=== PATIENT | male | born 1955 | race Caucasian/White ===

== ENCOUNTER 2023-09-29 08:17 | Outpatient (OUT) | payer MEDICARE, SELFPAY ==
[2023-09-29 08:53] LABS: Basophils Percent Auto 0.7 % (0.2-2.0); Eosinophils Absolute Auto 0.2 10^3/uL (0.0-0.7); Eosinophils Percent Auto 2.7 % (0.9-7.0); Hematocrit 40.1 % (42.0-54.0); Hemoglobin 13.8 g/dL (14.0-18.0); Immature Granulocytes Abs Auto 0.02 10^3/uL (0.00-0.03); Immature Granulocytes Pct Auto 0.3 % (0.0-0.5); Lymphocytes Absolute Auto 1.7 10^3/uL (1.2-3.8); Lymphocytes Percent Auto 29.2 % (20.5-60.0); Mean Corpuscular HGB Conc 34.4 g/dL (29.9-35.2); Mean Corpuscular Hemoglobin 30.7 pg (25.9-34.0); Mean Corpuscular Volume 89.3 fL (80.0-94.0); Mean Platelet Volume 11.4 fL (9.5-13.5); Monocytes Absolute Auto 0.6 10^3/uL (0.3-0.8); Monocytes Percent Auto 9.7 % (1.7-12.0); Neutrophils Absolute Auto 3.4 10^3/uL (1.4-6.5); Neutrophils Percent Auto 57.4 % (43.0-75.0); Platelet Count 159 10^3/uL (150-450); Red Blood Count 4.49 10^6/uL (4.70-6.10); Red Cell Distribution Width 12.2 % (11.0-15.0)
[2023-09-29 10:04] LABS: Estimated Average Glucose 114 mg/dL; Glycohemoglobin A1C 5.6 % (4.5-6.2)
[2023-09-29 10:11] LABS: Alanine Aminotransferase 27 U/L (16-63); Albumin Globulin Ratio 1.5; Albumin Level 3.9 g/dL (3.4-5.0); Alkaline Phosphatase 93 U/L (46-116); Anion Gap 11.5; Aspartate Amino Transferase 20 U/L (15-37); BUN Creatinine Ratio 21.8; Bilirubin Total 0.9 mg/dL (0.2-1.0); Calcium 8.7 mg/dL (8.5-10.1); Carbon Dioxide 28.7 mmol/L (21.0-32.0); Chloride 106 mmol/L (98-107); Chol HDL Ratio 2.3; Cholesterol 94 mg/dL (<=200); Estimated GFR (African America >60 (>=60); Estimated GFR (Non-African Ame >60 (>=60); Globulin 2.6 g/dL; Glucose 100 mg/dL (74-106); HDL Cholesterol 40 mg/dL (40-60); LDL Cholesterol Calculated 43.6 mg/dL; Potassium 4.2 mmol/L (3.5-5.1); Sodium 142 mmol/L (136-145); Thyroid Stimulating Hormone 2.608 uIU/mL (0.358-3.740); Total Protein 6.5 g/dL (6.4-8.2); Triglycerides 52 mg/dL (<=150); VLDL CHOLESTEROL 10.4 mg/dL
[2023-09-29 10:16] LABS: Free T4 0.71 ng/dL (0.76-1.46)
[2023-09-29 10:20] LABS: Prostate Specific Antigen Dx 0.95 ng/mL (<=4.00)
== END 2023-09-29 08:18 | disposition home or self-care (01) ==
LOC: LAB 08:21
PROVIDERS: PCP Family Medicine; Visit Provider Family Medicine
DX: M43.16 Spondylolisthesis, lumbar region (principal); I10 Essential (primary) hypertension; E78.00 Pure hypercholesterolemia, unspecified; Z12.5 Encounter for screening for malignant neoplasm of prostate; R73.09 Other abnormal glucose
CPT/HCPCS: 36415; 80053; 80061; 83036; 84153; 84439; 84443; 85025

== ENCOUNTER 2023-11-16 14:21 | Outpatient (OUT) | payer MEDICARE, SELFPAY | END 2023-11-16 14:22 | disposition home or self-care (01) | LOC: PST 14:22 | PROVIDERS: PCP Family Medicine; Visit Provider Surgery | DX: Z01.818 Encounter for other preprocedural examination (principal); Z12.11 Encounter for screening for malignant neoplasm of colon ==

== ENCOUNTER 2023-11-24 07:03 | Day surgery (SDC) | payer MEDICARE, SELFPAY ==
--- NOTE | 2023-11-24 | OP_ITS ---
OPERATION DATE: 11/24/2023 PREOPERATIVE DIAGNOSIS: Screening colonoscopy. POSTOPERATIVE DIAGNOSIS: Normal colonoscopy to cecum. PROCEDURE: Colonoscopy to cecum. SURGEON: Nick Mendoza M.D. ANESTHESIA: Monitored anesthesia care. ESTIMATED BLOOD LOSS: Zero. INDICATIONS AND CONSENT: Patient is a 67-year-old male, presents for colorectal screening. Indications, risks, benefits, alternatives of proceeding with colonoscopy were explained extensively to the patient, including the risks of bleeding, colon perforation or anesthetic complications. All of his questions were answered. Informed consent was obtained. PROCEDURE: Patient brought to the operating room, placed in the left lateral decubitus position. Monitored anesthesia care was provided. Rectal exam was performed which showed no masses or blood. The scope was inserted into the anal canal. Under direct visualization was advanced. It was advanced to the cecum where cecal markings were clearly identified. Upon withdrawal of the scope, mucosal surfaces were carefully examined. There were no mass lesions or polyps. No inflammatory changes or ulcerations. No significant diverticulosis. The scope was retroflexed in the anal canal. There was no significant hemorrhoidal disease. There were some prominent rectal veins. The scope was then withdrawn. Patient tolerated procedure well, was sent to recovery room in good condition. Follow up colonoscopy for screening should be in 10 years. CC: Ralph Donohue M.D. [place]
--- OUTSIDE RECORDS SUMMARY | 2023-11-24 07:05 | XMS_ITS | CCD ---
Author Organization [facility] Care Team Providers Care Mechanical Specialist Name Role Phone DAT COCHRAN Admitting Unavailable DAT COCHRAN Attending Unavailable CESILIA DONOHUE Referring Unavailable CESILIA DONOHUE Primary Care Unavailable DANY CANADA A Surgeon Unavailable [place] Procedure Practitioner Unavailab Arnaud Bello Unavailable CHARANJIT ., DR LOMAS Admitting Unavailable HOY ., DR LOMAS Primary Care Unavailable HOY ., DR LOMAS Consulting Unavailable HOY ., DR LOMAS Attending Unavailable SHAHAB, DR MIKE Whitten Consulting Unavailable HOY ., DR LOMAS Admitting Unavailable HOY ., DR LOMAS Primary Care Unavailable HOY ., DR LOMAS Consulting Unavailable HOY ., DR LOMAS Attending Unavailable [place], DR KILO Linton Consulting Unavailable HOY ., DR LOMAS Primary Care Unavailable HOY ., DR LOMAS Consulting Unavailable HOY ., DR LOMAS Attending Unavailable HOY ., DR LOMAS Admitting Unavailable HOY ., DR LOMAS Primary Care Unavailable MARIBEL PEARL Admitting Unavailable MARIBEL PEARL Attending Unavailable Maribel Pearl Unavailable MD Cesilia Donohue Primary Care Provider [phone] SERGEY Pearl Attending Provider Maribel Pearl Attending Unavailable Maribel Pearl Admitting Unavailable Cesilia Donohue Primary Care Unavailable DORIS ESQUIVEL Attending Unavailable Cesilia Donohue Primary Care Physician Everton LOPEZ Attending Unavailable Cesilia Donohue Referring Unavailable Allergies Allergy Classification Reported Allergen(s) Allergy Type Date of Onset Reaction(s) Facility (1 source) No Known Medication Allergies; Translations: [No Known Medication Allergies] Propensity to adverse reactions (disorder) [facility] Medications Current Medications Medication Drug Class(es) Dates Sig (Normalized) Sig (Original) aspirin 325 mg delayed release oral tablet (3 sources) Platelet Aggregation Inhibitor, Nonsteroidal Anti-inflammatory Drug Start: 11-02-2023 take 1 tablet by mouth once daily aspirin 325 mg Oral EC Tab 325 mg = 1 tab(s), Oral, Daily, Refills(s) 0 Start Date: 11/02/23 Status: Ordered take 1 tablet by karie th every twenty-four hours Aspirin 325 MG 1 tablet Orally Once a day Active atorvastatin 80 mg oral tablet (5 sources) HMG-CoA Reductase Inhibitor Start: 10-11-2023 take 1 tablet by mouth once daily Lipitor 80 mg Tab 80 mg = 1 tab(s), Oral, Daily, Refills(s) 0 Start Date: 10/11/23 Status: Ordered Start: 06-24-2023 Atorvastatin A ctive 40 MG PO June 24, 2023 12:00am take 1 tablet by karie th once daily Atorvastatin Calcium 40 MG take 1 tablet by mouth once daily Oral for 30 Days Active lidocaine 0.05 mg/mg medicated patch (1 source) Antiarrhythmic, Amide Local Anesthetic Start: 06-24-2022 Lidocaine 5 % 1 patch remove after 12 hours Externally Once a day for 15 days May, Active metoprolol tartrate 25 mg oral tablet (3 sources) beta-Adrenergic Zhen Start: 10-11-2023 take 1 tablet by mouth twice daily Metoprolol tartrate 25 mg Tab 25 mg = 1 tab(s), Oral, BID, Refills(s) 0 Start Date: 10/11/23 Status: Ordered take 1 tablet by mouth twice rich ly Metoprolol Tartrate 25 MG take 1 tablet by mouth twice a day Oral for 30 Days Active tiZANidine 4 mg oral tablet (2 sources) Central alpha-2 Adrenergic Agonist take 2 tablets by mouth at bedtime tiZANidine HCl 4 MG take 2 tablets by mouth at bedtime Oral for 30 Days Active Problems Active Problems Problem Classification Problem Date Documented Date Episodic/Chronic Cardiac dysrhythmias (7 sources) Paroxysmal atrial fibrillation; Translations: [Atrial fibrillation] Onset: 03-02-2022 Chronic Disorders of lipid metabolism (2 sources) Hyperlipidemia, unspecified; Translations: [Hypercholesterolemia ] Onset: 03-07-2022 10-11-2023 Chronic Essential hypertension (1 source) Hypertensive disorder 10-11-2023 Chronic Hyperplasia of prostate (1 source) Benign prostatic hyperplasia 10-11-2023 Chronic Inflammatory conditions of male genital organs (1 source) Chronic prostatitis; Translations: [CHRONIC PROSTATITIS] Onset: 03-07-2022 Chronic Other acquired deformities (5 sources) Lumbar spondylolisthesis; Translations: [Spondylolisthesis, lumbar region] 06-24-2023 Episodic Other acquired deformities (5 sources) Spondylolisthesis, lumbar region; Translations: [Acquired spondylolisthesis] Onset: 06-29-2022 Episodic Other ear and sense organ disorders (1 source) Sensorineural hearing loss 10-11-2023 Chronic Other nutritional; endocrine; and metabolic disorders (1 source) Overweight 10-11-2023 Episodic Other nutritional; endocrine; and metabolic disorders (1 source) Overweight in adulthood with body mass index of 25 or more but less than 30 11-02-2023 Episodic Other screening for suspected conditions (not mental disorders or infectious disease) (2 sources) Encounter for screening for malignant neoplasm of prostate; Translations: [Screening for malignant neoplasm of colon done] Onset: 03-07-2022 Episodic Spondylosis; intervertebral disc disorders; other back problems (1 source) Intervertebral disc disorders with myelopathy, lumbar region; Translations: [IV DISC D/O W/MYELOPATHY LUMBAR RGN] Onset: 02-23-2022 Chronic Spondylosis; intervertebral disc disorders; other back problems (16 sources) Spinal stenosis of lumbar region; Translations: [Spinal stenosis, lumbar region without neurogenic claudication] Onset: 02-02-2022 Episodic Unclassified (1 source) Patient encounter status 11-02-2023 Past or Other Problems Problem Classification Problem Date Documented Da te Episodic/Chronic Diabetes mellitus without complication (1 source) Other abnormal glucose; Translations: [OTHER ABNORMAL GLUCOSE] Onset: 03-07-2022 Episodic Results Test Name Value Interpretation Reference Range Facility Ambulatory Visit Summaryon 0 11-02-2023 Ambulatory Visit Summary Ambulatory Visit Summary EVERTON DECKER :1955 Visit Date:11/02/2023 Ambulatory Visit Instructions Your Diagnosis Screening for malignant neoplasm of colon Your Care Team Attending Physician - Everton LOPEZ MD Primary Care Physician - Cesilia Donohue MD Referring Physician - Cesilia Donohue MD This Is Your Medications List Contact prescribing physician if questions or concerns aspirin (aspirin 325 mg Oral EC Tab) atorvastatin (Lipitor 80 mg Tab) metoprolol (Metoprolol tartrate 25 mg Tab) Procedures Performed Colonoscopy (04/11/2012), Cardiac catheterization, Colonoscopy, Flexible cystoscopy. Discharge Vitals Heart Rate (Peripheral) 60 Respiratory Rate 16 Blood Pressure 126/74 Height 177.8 cm Height 70 in Weight 90.2 kg Weight 198.44 lb BMI 28.53 Medications What How Much When Instructions Unchanged aspirin (aspirin 325 mg Oral EC Tab) 1 Tablets By Mouth Every day Contact prescribing physician if questions or concerns Unchanged atorvastatin (Lipitor 80 mg Tab) 1 Tablets By Mouth Every day Contact prescribing physician if questions or concerns Unchanged metoprolol (Metoprolol tartrate 25 mg Tab) 1 Tablets By Mouth 2 times a day Contact prescribing physician if questions or concerns Allergies No Known Allergies No Known Medication Allergies Problems Ongoing - Any problem that you are currently receiving treatment for. Atrial fibrillation BMI 28.0-28.9,adult BPH (benign prostatic hyperplasia) Hypercholesterolemia Hypertension Overweight Screening for malignant neoplasm of colon Sensorineural hearing loss Spondylolisthesis of lumbar region Patient Survey You may receive a survey via text or e-mail asking about your office visit. Please share your experience with us by completing your survey. We appreciate your feedback and thank you for choosing us for your care. Normal [facility] Office Visiton 09-21-2023 Follow-up visit [id number] Everton Decker 1955 M Date Provider Department Center 09/21/2023 DORIS GARRISON CARD [facility] Family History Problem Relation Age of Onset Coronary artery disease Father Family Status - Relation Status Age at Father Level of Service:[address] [place] OFFICE/OUTPATIENT ESTABLISHED MOD MDM 30 MIN Reason for Visit and Comments: Coronary Artery Disease [187] Hypertension [975898] Atrial Fibrillation [80] Hyperlipidemia [182] Normal [facility] XR lumbar spine 6V w bending on 06-24-2023 XR lumbar spine 6V w bending [facility] [address] [address] XRay Report Signed Patient: Everton Decker MR#: [id number] : 1955 Acct:[id number] Age/Sex: 67 / M ADM Date: 06/24/23 Loc: XD Room: Type: [facility] Attending Dr: Maribel RINCON Copies to: SERGEY Caraballo Ordering Provider: SERGEY Caraballo Date of Service: 06/24/23 XR/XR lumbar spine 6V w bending: M43.16 6 views Lumbar Spinewith bending HISTORY: Suggesting spondylolisthesis. COMPARISON: 03/24/2022 POSTSURGICAL CHANGES: None BONY ALIGNMENT: Stable HYPERMOBILITY:No hypermobility LISTHESIS:Similar 8 mm L4-5 anterolisthesis. FRACTURE: None DEGENERATIVE CHANGES: Similar moderate lower lumbar degenerative change. SOFT TISSUES: Atherosclerosis. BONY MINERALIZATION:[place] te XR/XR lumbar spine 6V w bending IMPRESSION: No hypermobility. Similar moderate L4-5 anterolisthesis. Similar degeneration. Impression dictated by: Fito Rousseau M.D.06/24/2023 2:37 PM Dictation Location: [place] [address] Transcribed By: [facility] 06/24/23 1437 Dictated By: Fito Rousseau DO 06/24/23 1433 Signed By: 06/24/23 1437 [facility] CBC AUTO DIFFon 03-02-2022 BASO # 0.0 103/ul Normal 0.0-0.[address] [facility] Comment on above: Performed By: #### C BC #### [facility] [address] [place] [address] Dr. Jayden Tolentino Basophils/100 WBC (Bld) 0.3 % Normal 0.2-2.[address] [facility] Comment on above: Performed By: #### C BC #### [facility] [address] [place] [address] [address] Jayden Tolentino EO # 0.1 103/ul Normal 0.0-0.[address] [facility] Comment on above: Performed By: #### C BC #### [facility] [address] [place] [address] [address] Jayden Tolentino Eosinophils/100 WBC (Bld) 1.1 % Normal 0.9-7.[address] [facility] Comment on above: Performed By: #### C BC #### [facility] [address] [place] [address] Dr. Jayden Tolentino Erythrocyte distribution width (RBC) [Ratio] 12.5 % Normal 11.0-15.[address] [facility] Comment on above: Performed By: #### C BC #### [facility] [address] [place] [address] Dr. Jayden Tolentino Hematocrit (Bld) [Volume fraction] 40.6 % Critically low 42.0-54.[address] [facility] Comment on above: Performed By: #### C BC #### [facility] [address] [place] [address] Dr. Jayden Tolentino Hemoglobin (Bld) [Mass/Vol] 14.2 g/dL Normal 14.0-18.[address] [facility] Comment on above: Performed By: #### C BC #### [facility] [address] [place] [address] Dr. Jayden Tolentino IG # 0.02 10e3/ul Normal 0.00-0.[address] [facility] Comment on above: Performed By: #### C BC #### [facility] [address] [place] [address] Dr. Jayden Tolentino IG % 0.3 % Normal 0.0-0.[address] [facility] Comment on above: Performed By: #### C BC #### [facility] [address] [place] [address] Dr. Jayden Tolentino LYMPH # 1.5 103/ul Normal 1.2-3.8 [facility] Comment on above: Performed By: #### C BC #### [facility] [address] [place] [address] Dr. Jayden Tolentino Lymphocytes/100 WBC (Bld) 24.2 % Normal 20.5-60.[address] [facility] Comment on above: Performed By: #### C BC #### [facility] [address] [place] [address] Dr. Jayden Tolentino MANUAL DIFF REQ NO Normal [facility] Comment on above: Performed By: #### C BC #### [facility] [address] [place] [address] Dr. Jayden Tolentino MCH (RBC) [Entitic mass] 31.2 pg Normal 25.9-34.0 [facility] Comment on above: Performed By: #### C BC #### [facility] [address] [place] [address] Dr. Jayden Tolentino MCHC (RBC) [Mass/Vol] 35.0 g/dL Normal 29.9-35.2 [facility] Comment on above: Performed By: #### C BC #### [facility] [address] [place] [address] Dr. Jayden Tolentino MCV (RBC) [Entitic vol] 89.2 fL Normal 80.0-94.[address] [facility] Comment on above: Performed By: #### C BC #### [facility] [address] [place] [address] Dr. Jayden Tolentino MONO # 0.5 103/ul Normal 0.3-0.8 [facility] Comment on above: Performed By: #### C BC #### [facility] [address] [place] [address] Dr. Jayden Tolentino Monocytes/100 WBC (Bld) 7.6 % Normal 1.7-12.[address] [facility] Comment on above: Performed By: #### C BC #### [facility] [address] [place] [address] Dr. Jayden Tolentino NEUT # 4.2 103/ul Normal 1.4-6.5 [facility] Comment on above: Performed By: #### C BC #### [facility] [address] [place] [address] Dr. Jayden Tolentino Neutrophils/100 WBC (Bld) 66.5 % Normal 43.0-75.0 [facility] Comment on above: Performed By: #### C BC #### [facility] [address] [place] [address] Dr. Jayden Tolentino Platelet mean volume (Bld) [Entitic vol] 9.9 fL Normal 9.5-13.5 [facility] Comment on above: Performed By: #### C BC #### [facility] [address] [place] [address] [address] Jayden Tolentino PLT 165 103/ul Normal 150-450 [facility] Comment on above: Performed By: #### C BC #### [facility] [address] [place] [address] [address] Jayden Tolentino RBC 4.55 106/ul Critically low 4.70-6.10 [facility] Comment on above: Performed By: #### C BC #### [facility] [address] [place] [address] [address] Jayden Tolentino WBC 6.3 103/ul Normal 4.0-11.[address] [facility] Comment on above: Performed By: #### C BC #### [facility] [address] [place] [address] [address] Jayden Tolentino FREE THYROXINE INDEX T7on FTI 1.90 Normal 1.30-4.[address] [facility] Comment on above: Performed By: #### T 7, CMP, TSH, LIPID #### [facility] [address] [place] [address] [address] Jayden Tolentino T3U 34.0 % Normal 33.0-40.[address] [facility] Comment on above: Performed By: #### T 7, CMP, TSH, LIPID #### [facility] [address] [place] [address] [address] Jayden Tolentino T4 [Mass/Vol] 5.60 ug/dL Normal 4.50-12.10 [facility] Comment on above: Performed By: #### T 7, CMP, TSH, LIPID #### [facility] [address] [place] [address] [address] Jayden Tolentino GLYCOHEMOGLOBIN A1Con 2021 ADA RECOMMENDATION SEE BELOW Normal [facility] Comment on above: Result Comment: ADA RECOMMENDED LIMIT 4.0 - 6.0 ADA THERAPEUTIC TARGET < 7.0 ACTION SUGGESTED > 7.0 Performed By: #### A 1C #### [facility] [address] [place] [address] [address] Jayden Tolentino Glucose [Mass/Vol] 120 mg/dL Normal [facility] Comment on above: Performed By: #### A 1C #### [facility] [address] [place] [address] [address] Jayden Tolentino HbA1c (Bld) [Mass fraction] 5.8 % Normal 4.5-6.[address] [facility] Comment on above: Performed By: #### A 1C #### [facility] [address] [place] [address] [address] Jayden Tolentino LIPID PROFILEon 03-02-2022 CHOL-HDL RATIO NORM SEE BELOW Normal [facility] Comment on above: Result Comment: 3.3 - 4.4 LOW RISK 4.4 - 7.1 AVERAGE RISK 7.1 - 11.0 MODERATE RISK >11.0 HIGH RISK Performed By: #### T 7, CMP, TSH, LIPID #### [facility] [address] [place] [address] [address] Jayden Tolentino Cholesterol [Mass/Vol] 99 mg/dL Normal <=[address] [facility] Comment on above: Performed By: #### T 7, CMP, TSH, LIPID #### [facility] [address] [place] [address] [address] Jayden Tolentino Cholesterol in HDL [Mass/Vol] 44 mg/dL Normal 40-[address] [facility] Comment on above: Performed By: #### T 7, CMP, TSH, LIPID #### [facility] [address] [place] [address] [address] Jayden Tolentino Cholesterol in LDL [Mass/Vol] 44.2 mg/dL Normal [facility] Comment on above: Performed By: #### T 7, CMP, TSH, LIPID #### [facility] [address] [place] [address] [address] Jayden Tolentino Cholesterol.total/Ch olesterol in HDL [Mass ratio] 2.3 {ratio} Normal [facility] Comment on above: Performed By: #### T 7, CMP, TSH, LIPID #### [facility] [address] [place] [address] [address] Jayden Tolentino HDL NORMAL > or = 60 mg/dl - LO W CARDIOVASCULAR RISK <40 mg/dl - HIGH CARDIOVASCULAR RISK Normal [facility] Comment on above: Performed By: #### T 7, CMP, TSH, LIPID #### [facility] [address] [place] [address] [address] Jayden Tolentino LDL CALC NORMAL SEE BELOW Normal [facility] Comment on above: Result Comment: <100 mg/dl OPTIMAL 100 - 129 mg/dl NEAR OR ABOVE OPTIMAL 130 - 159 mg/dl BORDERLINE HIGH 160 - 189 mg/dl HIGH >190 mg/dl VERY HIGH Performed By: #### T 7, CMP, TSH, LIPID #### [facility] [address] [place] [address] [address] Jayden Tolentino Triglyceride [Mass/Vol] 54 mg/dL Normal <=[address] [facility] Comment on above: Performed By: #### T 7, CMP, TSH, LIPID #### [facility] [address] [place] [address] [address] Jayden Tolentino VLDL CALC 10.8 mg/dL Normal [facility] Comment on above: Performed By: #### T 7, CMP, TSH, LIPID #### [facility] [address] [place] [address] [address] Jayden Tolentino PROF 14(COMP METB)on 022 Albumin [Mass/Vol] 3.8 g/dL Normal 3.4-5.0 [facility] Comment on above: Performed By: #### T 7, CMP, TSH, LIPID #### [facility] [address] [place] [address] [address] Jayden Tolentino Albumin/Globulin [Mass ratio] 1.3 {ratio} Normal [facility] Comment on above: Performed By: #### T 7, CMP, TSH, LIPID #### [facility] [address] [place] [address] [address] Jayden Tolentino ALP [Catalytic activity/Vol] 83 U/L Normal 46-116 [facility] Comment on above: Performed By: #### T 7, CMP, TSH, LIPID #### [facility] [address] [place] [address] [address] Jayden Tolentino ALT [Catalytic activity/Vol] 43 U/L Normal 16-[address] [facility] Comment on above: Performed By: #### T 7, CMP, TSH, LIPID #### [facility] [address] [place] [address] [address] Jayden Tolentino Anion gap [Moles/Vol] 11.1 mmol/L Normal [facility] Comment on above: Performed By: #### T 7, CMP, TSH, LIPID #### [facility] [address] [place] [address] [address] Jayden Tolentino AST [Catalytic activity/Vol] 24 U/L Normal 15-[address] [facility] Comment on above: Performed By: #### T 7, CMP, TSH, LIPID #### [facility] [address] [place] [address] [address] Jayden Tolentino Bilirubin [Mass/Vol] 0.8 mg/dL Normal 0.2-1.[address] [facility] Comment on above: Performed By: #### T 7, CMP, TSH, LIPID #### [facility] [address] [place] [address] [address] Jayden Tolentino Calcium [Mass/Vol] 9.0 mg/dL Normal 8.5-10.1 [facility] Comment on above: Performed By: #### T 7, CMP, TSH, LIPID #### [facility] [address] [place] [address] Dr. Jayden Tolentino Chloride [Moles/Vol] 105 mmol/L Normal 98-107 [facility] Comment on above: Performed By: #### T 7, CMP, TSH, LIPID #### [facility] [address] [place] [address] [address] Jayden Tolentino CO2 [Moles/Vol] 26.5 mmol/L Normal 21.0-32.[address] [facility] Comment on above: Performed By: #### T 7, CMP, TSH, LIPID #### [facility] [address] [place] [address] Dr. Jayden Tolentino Creatinine [Mass/Vol] 0.84 mg/dL Normal 0.70-1.[address] [facility] Comment on above: Performed By: #### T 7, CMP, TSH, LIPID #### [facility] [address] [place] [address] Dr. Jayden Tolentino EGFR-AF [place] >60 Normal >=[address] [facility] Comment on above: Performed By: #### T 7, CMP, TSH, LIPID #### [facility] [address] [place] [address] [address] Jayden Tolentino EGFR-NON AF [place] >60 Normal >=60 [facility] Comment on above: Performed By: #### T 7, CMP, TSH, LIPID #### [facility] [address] [place] [address] [address] Jayden Tolentino Globulin (S) [Mass/Vol] 3.0 g/dL Normal [facility] Comment on above: Performed By: #### T 7, CMP, TSH, LIPID #### [facility] [address] [place] [address] [address] Jayden Tolentino Glucose [Mass/Vol] 99 mg/dL Normal 74-106 [facility] Comment on above: Performed By: #### T 7, CMP, TSH, LIPID #### [facility] [address] [place] [address] Dr. Jayden Tolentino Potassium [Moles/Vol] 4.6 mmol/L Normal 3.5-5.1 [facility] Comment on above: Performed By: #### T 7, CMP, TSH, LIPID #### [facility] [address] [place] [address] Dr. Jayden Tolentino Protein [Mass/Vol] 6.8 g/dL Normal 6.4-8.2 [facility] Comment on above: Performed By: #### T 7, CMP, TSH, LIPID #### [facility] [address] [place] [address] [address] Jayden Tolentino Sodium [Moles/Vol] 138 mmol/L Normal 136-145 [facility] Comment on above: Performed By: #### T 7, CMP, TSH, LIPID #### [facility] [address] [place] [address] Dr. Jayden Tolentino Urea nitrogen [Mass/Vol] 19.0 mg/dL Critically high 7.0-18.0 [facility] Comment on above: Performed By: #### T 7, CMP, TSH, LIPID #### [facility] [address] [place], [place] [address] Dr. Jayden Tolentino Urea nitrogen/Creatinine [Mass ratio] 22.6 mg/mg Normal [facility] Comment on above: Performed By: #### T 7, CMP, TSH, LIPID #### [facility] [address] [place], [place] [address] Dr. Jayden Tolentino TSHon 03-02-2022 TSH 2.208 uIU/mL Normal 0.358-3.740 [facility] Comment on above: Performed By: #### T 7, CMP, TSH, LIPID #### [facility] [address] [place], [place] [address] Dr. Jayden Tolentino MRI LSPINE WO CONon 02-19-20 MRI LSPINE WO CON EXAMINATION: MRI LSPINE WO CON HISTORY: Degeneration of lumbar intervertebral disc ; acute lumbar pain for one month radiating into left leg COMPARISON: XR L-spine 02/02/2022 TECHNIQUE: A variety of imaging planes and parameters were utilized for visualization of suspected pathology. FINDINGS: For the purposes of numbering, sagittal T2 image # 8 extends from the T11 vertebral body superiorly to the S3 level inferiorly. PARASPINAL AREA: Normal with no visible mass. BONES: 6 mm anterior listhesis of L4 on 5 without appreciable pars interarticularis defects. CORD/CAUDA EQUINA: Normal caliber, contour, and signal intensity. DISC LEVELS: 12-L1: No significant disc/facet abnormality, spinal stenosis, or foraminal stenosis. L1-L2: No significant disc/facet abnormality, spinal stenosis, or foraminal stenosis. L2-L3: Early degenerative disc disease is present without focal protrusion or neural impingement. L3-L4: Early degenerative disc disease is present without focal protrusion or neural impingement. L4-L5: Marked central canal and left foramen narrowing. Moderate right foramen narrowing. 6 mm anterior listhesis of L4 on 5 with prominent posterior pseudodisc bulging and moderate disc height reduction. Marked degenerative facet arthropathy and ligamentum flavum thickening bilaterally. L5-S1: Mild-moderate foramen narrowing bilaterally without significant central canal narrowing. Mild diffuse disc bulging without disc height reduction. Mild degenerative facet arthropathy. IMPRESSION: 1. L4-L5 marked central canal and left foramen narrowing secondary to moderate degenerative disc disease, marked degenerative facet arthropathy, and grade 1 anterior listhesis (no pars interarticularis defects). Electronically authenticated by: MIKE GUDINO Date: 2022-02-18 06:29 Normal [facility] XR LSPINE MIN 4 VIEWSon 11-0 XR LSPINE MIN 4 VIEWS EXAMINATION: XR LSPINE MIN 4 VIEWS HISTORY: Lumbar radiculopathy r COMPARISON: No relevant comparison available. FINDINGS: BONES: Normal alignment with no acute fracture or spondylolisthesis. 6 mm anterolisthesis of L4 in relation L5. Mild spondylosis. Moderate to severe facet osteoarthropathy DISC SPACES: Normal. No significant disc height narrowing, subluxation, or endplate abnormality. PARASPINOUS: Negative. No paraspinous abnormality is seen. OTHER: Negative. IMPRESSION: Degenerative changes 6 mm anterolisthesis of L4 Electronically authenticated by: KILO OLSEN Date: 2022-02-02 17:44 Normal [facility] BASIC METABOLIC PANELon 09-27 Calcium [Mass/Vol] 8.7 mg/dL Normal 8.6-10.3 [facility] Comment on above: Order Comment: No: D o not add to previous draw Performed By: #### 5 6101 #### [facility] [address] [place] [address], [facility] Chloride [Moles/Vol] 109 mmol/L High 98-107 [facility] Comment on above: Order Comment: No: D o not add to previous draw Performed By: #### 5 6101 #### [facility] [address] [place] [address], [facility] CO2 [Moles/Vol] 27 mmol/L Normal 21-31 [facility] Comment on above: Order Comment: No: D o not add to previous draw Performed By: #### 5 6101 #### [facility] [address] [place] [address], [facility] Creatinine [Mass/Vol] 0.87 mg/dL Normal 0.70-1.30 [facility] Comment on above: Order Comment: No: D o not add to previous draw Performed By: #### 5 6101 #### [facility] [address] [place] [address], [place] GFR/1.73 sq M predicted among blacks MDRD (S/P/Bld) [Vol rate/Area] mL/min/{1.73_m2} Normal >60 [facility] Comment on above: Order Comment: No: D o not add to previous draw Performed By: #### 5 6101 #### [facility] [address] [place] [address], [place] GFR/1.73 sq M predicted among non-blacks MDRD (S/P/Bld) [Vol rate/Area] mL/min/{1.73_m2} Normal >60 [facility] Comment on above: Order Comment: No: D o not add to previous draw Performed By: #### 5 6101 #### [facility] [address] [place] [address], [place] Glucose [Mass/Vol] 95 mg/dL Normal 70-100 [facility] Comment on above: Order Comment: No: D o not add to previous draw Performed By: #### 5 6101 #### [facility] [address] [place] [address], [place] Potassium [Moles/Vol] 4.3 mmol/L Normal 3.5-5.1 [facility] Comment on above: Order Comment: No: D o not add to previous draw Performed By: #### 5 6101 #### [facility] [address] [place] [address], [place] Sodium [Moles/Vol] 140 mmol/L Normal 136-145 [facility] Comment on above: Order Comment: No: D o not add to previous draw Performed By: #### 5 6101 #### [facility] [address] [place] [address], [place] Urea nitrogen [Mass/Vol] 17 mg/dL Normal 7-25 [facility] Comment on above: Order Comment: No: D o not add to previous draw Performed By: #### 5 6101 #### [facility] [address] [place] [address], [facility] CBC COMPLETE BLOOD COUNTon 0 10-15-2018 Erythrocyte distribution width (RBC) [Ratio] 12.2 % Normal 11.5-15.0 [facility] Comment on above: Order Comment: No: D o not add to previous draw Performed By: #### 5 6101 #### [facility] [address] [place] [address], [facility] Hematocrit (Bld) [Volume fraction] 40.6 % Normal 39.0-50.0 [facility] Comment on above: Order Comment: No: D o not add to previous draw Performed By: #### 5 6101 #### [facility] [address] [place] [address], [facility] Hemoglobin (Bld) [Mass/Vol] 13.7 g/dL Normal 13.0-17.0 [facility] Comment on above: Order Comment: No: D o not add to previous draw Performed By: #### 5 6101 #### [facility] [address] [place] [address], [facility] MCH (RBC) [Entitic mass] 31.1 pg Normal 27.0-33.0 [facility] Comment on above: Order Comment: No: D o not add to previous draw Performed By: #### 5 6101 #### [facility] [address] [place] [address], [facility] MCHC (RBC) [Mass/Vol] 33.7 g/dL Normal 32.0-35.0 [facility] Comment on above: Order Comment: No: D o not add to previous draw Performed By: #### 5 6101 #### [facility] [address] [place] [address], [facility] MCV (RBC) [Entitic vol] 92.1 fL Normal 82.0-98.0 [facility] Comment on above: Order Comment: No: D o not add to previous draw Performed By: #### 5 6101 #### [facility] [address] Nucleated RBC/100 WBC (Bld) [Ratio] 0 % Normal 0-0 [facility] Comment on above: Order Comment: No: D o not add to previous draw Performed By: #### 5 6101 #### [facility] [address] [place] [address], [facility] PLAT CNT 164 10*3/uL Normal 150-400 [facility] Comment on above: Order Comment: No: D o not add to previous draw Performed By: #### 5 6101 #### [facility] [address] [place] [address], [facility] RBC (Bld) [#/Vol] 4.41 10*6/uL Normal 4.20-5.70 [facility] Comment on above: Order Comment: No: D o not add to previous draw Performed By: #### 5 6101 #### [facility] [address] [place] [address], [facility] WBC (Bld) [#/Vol] 6.69 10*3/uL Normal 4.00-10.60 [facility] Comment on above: Order Comment: No: D o not add to previous draw Performed By: #### 5 6101 #### [facility] [address] Cardiovascular Lab Reporton 10-15-2018 Cardiovascular Lab Report [facility] Patient Name: Everton Decker [facility] MR #: [id number] Physician: Dany Canada Department of M.D. Medicine Service Date: 10/14/2018 Division of Birthdate: 1955 Cardiology Room #: [id number] Adult Cardiovascular Services [facility] [place] [address] Cardiovascular Laboratory Report FINAL IMPRESSIONS: 1. 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 2. Plaque disease of the right coronary artery and left circumflex coronary artery. 3. Normal global left ventricular systolic function by noninvasive imaging. RECOMMENDATIONS/PLAN: 1. Aggressive cardiovascular risk factor modification. 2. Optimization of medical management; kzwohxac-yx-qjru intensity statin therapy, aspirin, a beta-zhen are indicated. 3. Further investigations and management for the patient's paroxysmal atrial fibrillation as appropriate. 4. Further recommendations deferred to the inpatient services. PROCEDURES: Bilateral selective coronary angiography, limited from angiography, placement of a 6-Serbian MynxGrip closure device. METHODS: After risks, benefits, and alternatives were explained, written informed consent was obtained. The patient was prepped and draped in usual sterile fashion over the right groin. Using 1% lidocaine solution, local infiltration anesthesia was achieved. Using a modified Seldinger technique and a micropuncture kit, access to the right common femoral artery was obtained. Angiography via the inner cannula of the micropuncture kit was performed. This was exchanged out for a 6-Serbian 11 cm sheath. Bilateral selective coronary angiography was performed. Using JL4 and JR4 catheters. After reviewing the images, it was elected to conclude the procedure. A 6-Serbian MynxGrip closure device was deployed per protocol achieving optimal hemostasis. Overall, the patient tolerated the procedure well. There were no overt complications. He was to be transferred to his hospital room in stable condition. FINDINGS: Hemodynamics: AO 130/75. LEFT VENTRICULOGRAPHY: This was not performed. Ejection fraction is normal by noninvasive imaging. CORONARY ARTERIES: 1. Left main coronary artery. This arises from the left coronary cusp. It bifurcates into the left anterior descending and left circumflex coronary arteries and is free of significant stenosis. 2. Left anterior descending coronary artery. This shows mild plaque proximally. There is a 30% midvessel stenosis and mild plaque distally. A fjzaq-fl-ycigiodo sized second diagonal shows a 40%-50% ostial narrowing. 3. Left circumflex coronary artery. This shows luminal irregularities. 4. Right coronary artery. This is a dominant vessel giving rise to the posterior descending and posterolateral branches. It shows a 20%-30% proximal stenosis and diffuse luminal irregularities distally. Limited femoral angiography shows mild plaque and anatomy suitable for closure device. INDICATIONS: Paroxysmal atrial fibrillation, troponin elevation, abnormal stress test. Electronically Signed by: Dany Canada M.D. 10/17/2018 12:56 P Dany Canada M.D. Date Dict: 10/14/2018/05:35 P/Dany Canada M.D. Date Trans: 10/15/2018 02:13 A/josse [id number] cc: Cesilia Donohue M.D. [address] [facility] [id number] Normal [facility] UFH HEPARIN ASSAYon 10-16-19 19 UNFRACTIONATED HEPARIN <0.10 Critically low 0.30-0.70 [facility] Comment on above: Result Comment: [place] roxaban and Apixaban will interfere with the anti Xa assay used to monitor UFH and LMWH. Results called. Accurately read back by Alyssa Vanegas RN at 0632 Performed By: #### 5 6101 #### [facility] [address] [place] [address], [facility] BASIC METABOLIC PANELon 07- Calcium [Mass/Vol] 8.6 mg/dL Normal 8.6-10.3 [facility] Comment on above: Order Comment: No: D o not add to previous draw Performed By: #### 5 6101 #### [facility] [address] [place] [address], [place] Chloride [Moles/Vol] 106 mmol/L Normal 98-107 [facility] Comment on above: Order Comment: No: D o not add to previous draw Performed By: #### 5 6101 #### [facility] [address] [place] [address], [place] CO2 [Moles/Vol] 27 mmol/L Normal 21-31 [facility] Comment on above: Order Comment: No: D o not add to previous draw Performed By: #### 5 6101 #### [facility] [address] [place] [address], [place] Creatinine [Mass/Vol] 0.82 mg/dL Normal 0.70-1.30 [facility] Comment on above: Order Comment: No: D o not add to previous draw Performed By: #### 5 6101 #### [facility] [address] [place] [address], [place] GFR/1.73 sq M predicted among blacks MDRD (S/P/Bld) [Vol rate/Area] mL/min/{1.73_m2} Normal >60 [facility] Comment on above: Order Comment: No: D o not add to previous draw Performed By: #### 5 6101 #### [facility] [address] [place] [address], [place] GFR/1.73 sq M predicted among non-blacks MDRD (S/P/Bld) [Vol rate/Area] mL/min/{1.73_m2} Normal >60 [facility] Comment on above: Order Comment: No: D o not add to previous draw Performed By: #### 5 6101 #### [facility] [address] [place] [address], [place] Glucose [Mass/Vol] 100 mg/dL Normal 70-100 [facility] Comment on above: Order Comment: No: D o not add to previous draw Performed By: #### 5 6101 #### [facility] [address] [place] [address], [place] Potassium [Moles/Vol] 4.0 mmol/L Normal 3.5-5.1 [facility] Comment on above: Order Comment: No: D o not add to previous draw Performed By: #### 5 6101 #### [facility] [address] [place] [address], [facility] Sodium [Moles/Vol] 139 mmol/L Normal 136-145 [facility] Comment on above: Order Comment: No: D o not add to previous draw Performed By: #### 5 6101 #### [facility] [address] [place] [address], [facility] Urea nitrogen [Mass/Vol] 19 mg/dL Normal 7-25 [facility] Comment on above: Order Comment: No: D o not add to previous draw Performed By: #### 5 6101 #### [facility] [address] [place] [address], [facility] CBC COMPLETE BLOOD COUNTon - Erythrocyte distribution width (RBC) [Ratio] 12.4 % Normal 11.5-15.0 [facility] Comment on above: Order Comment: No: D o not add to previous draw PER CHERYL BURKS, UFH IS NOT DUE UNTIL 6 AM; OK TO DRAW ALL A.M. LABS AT 6AM. Performed By: #### 5 0608 #### [facility] [address] [place] [address], [facility] Hematocrit (Bld) [Volume fraction] 41.1 % Normal 39.0-50.0 [facility] Comment on above: Order Comment: No: D o not add to previous draw PER CHERYL BURKS UFH IS NOT DUE UNTIL 6 AM; OK TO DRAW ALL A.M. LABS AT 6AM. Performed By: #### 5 0608 #### [facility] [address] [place] [address], [facility] Hemoglobin (Bld) [Mass/Vol] 14.4 g/dL Normal 13.0-17.0 [facility] Comment on above: Order Comment: No: D o not add to previous draw PER CHERYL BURKS, UFH IS NOT DUE UNTIL 6 AM; OK TO DRAW ALL A.M. LABS AT 6AM. Performed By: #### 5 0608 #### [facility] [address] MCH (RBC) [Entitic mass] 31.2 pg Normal 27.0-33.0 [facility] Comment on above: Order Comment: No: D o not add to previous draw PER RN VITALIY, UFH IS NOT DUE UNTIL 6 AM; OK TO DRAW ALL A.M. LABS AT 6AM. Performed By: #### 5 0608 #### [facility] [address] MCHC (RBC) [Mass/Vol] 35.0 g/dL Normal 32.0-35.0 [facility] Comment on above: Order Comment: No: D o not add to previous draw PER CHERYL BURKS UFH IS NOT DUE UNTIL 6 AM; OK TO DRAW ALL A.M. LABS AT 6AM. Performed By: #### 5 0608 #### [facility] [address] MCV (RBC) [Entitic vol] 89.2 fL Normal 82.0-98.0 [facility] Comment on above: Order Comment: No: D o not add to previous draw PER CHERYL BURKS UFH IS NOT DUE UNTIL 6 AM; OK TO DRAW ALL A.M. LABS AT 6AM. Performed By: #### 5 0608 #### [facility] [address] Nucleated RBC/100 WBC (Bld) [Ratio] 0 % Normal 0-0 [facility] Comment on above: Order Comment: No: D o not add to previous draw PER CHERYL BURKS, UFH IS NOT DUE UNTIL 6 AM; OK TO DRAW ALL A.M. LABS AT 6AM. Performed By: #### 5 0608 #### [facility] [address] [place] [address], [facility] PLAT CNT 172 10*3/uL Normal 150-400 [facility] Comment on above: Order Comment: No: D o not add to previous draw PER CHERYL BURKS UFH IS NOT DUE UNTIL 6 AM; OK TO DRAW ALL A.M. LABS AT 6AM. Performed By: #### 5 0608 #### [facility] [address] [place] [address], [facility] RBC (Bld) [#/Vol] 4.61 10*6/uL Normal 4.20-5.70 [facility] Comment on above: Order Comment: No: D o not add to previous draw PER CHERYL BURKS [facility] IS NOT DUE UNTIL 6 AM; OK TO DRAW ALL A.M. LABS AT 6AM. Performed By: #### 5 0608 #### [facility] [address] [place] [place] [address], [facility] WBC (Bld) [#/Vol] 6.83 10*3/uL Normal 4.00-10.60 [facility] Comment on above: Order Comment: No: D o not add to previous draw PER CHERYL BURKS [facility] IS NOT DUE UNTIL 6 AM; OK TO DRAW ALL A.M. LABS AT 6AM. Performed By: #### 5 0608 #### [facility] [address] [place] [address], [facility] TROPONIN-Ion 10-14-2018 Troponin I.cardiac [Mass/Vol] 0.12 ng/mL Critically high 0.00-0.04 [facility] Comment on above: Order Comment: No: D o not add to previous draw Result Comment: M-WI EVIOUS CRITICAL RESULT REFERENCE RANGES: 0.00 - 0.04 ng/ml NORMAL 0.05 - 0.50 ng/ml INDETERMINATE > 0.50 ng/ml CONSISTENT WITH AN M.I. Performed By: #### 5 6101 #### [facility] [address] [place] [address], [facility] Troponin I.cardiac [Mass/Vol] 0.16 ng/mL Critically high 0.00-0.04 [facility] Comment on above: Order Comment: No: D o not add to previous draw Result Comment: M-WI EVIOUS CRITICAL RESULT REFERENCE RANGES: 0.00 - 0.04 ng/ml NORMAL 0.05 - 0.50 ng/ml INDETERMINATE > 0.50 ng/ml CONSISTENT WITH AN M.I. Performed By: #### 3 5200 #### [facility] [address] [place] [address], [facility] UFH HEPARIN ASSAYon 10-15-19 19 UNFRACTIONATED HEPARIN 0.36 IU/mL Normal 0.30-0.70 [facility] Comment on above: Result Comment: [place] roxaban and Apixaban will interfere with the anti Xa assay used to monitor UFH and LMWH. Performed By: #### 5 6101 #### [facility] [address] UNFRACTIONATED HEPARIN >1.00 Critically high 0.30-0.70 [facility] Comment on above: Order Comment: No: D o not add to previous draw Result Comment: [place] roxaban and Apixaban will interfere with the anti Xa assay used to monitor UFH and LMWH. Result called to JERRY BELLO rn 0745 Performed By: #### 5 6101 #### [facility] [address] [facility] [facility] [address] BASIC METABOLIC PANELon 09-26 Calcium [Mass/Vol] 9.5 mg/dL Normal 8.6-10.3 [facility] Comment on above: Order Comment: No: D o not add to previous draw Performed By: #### 1 0070, 17292, 50226, 16353, 35011 #### [facility] [address] [place] [address], [facility] Chloride [Moles/Vol] 106 mmol/L Normal 98-107 [facility] Comment on above: Order Comment: No: D o not add to previous draw Performed By: #### 1 0070, 23839, 36659, 02934, 79138 #### [facility] [address] [place] [address], [facility] CO2 [Moles/Vol] 24 mmol/L Normal 21-31 [facility] Comment on above: Order Comment: No: D o not add to previous draw Performed By: #### 1 0070, 55573, 42737, 57767, 38069 #### [facility] [address] [place] [address], [place] Creatinine [Mass/Vol] 0.81 mg/dL Normal 0.70-1.30 [facility] Comment on above: Order Comment: No: D o not add to previous draw Performed By: #### 1 0070, 88678, 98147, 11579, 43763 #### [facility] [address] [place] [address], [place] GFR/1.73 sq M predicted among blacks MDRD (S/P/Bld) [Vol rate/Area] mL/min/{1.73_m2} Normal >60 [facility] Comment on above: Order Comment: No: D o not add to previous draw Performed By: #### 1 0070, 20929, 34697, 11858, 86548 #### [facility] [address] [place] [address], [place] GFR/1.73 sq M predicted among non-blacks MDRD (S/P/Bld) [Vol rate/Area] mL/min/{1.73_m2} Normal >60 [facility] Comment on above: Order Comment: No: D o not add to previous draw Performed By: #### 1 0070, 91122, 51569, 20368, 81038 #### [facility] [address] [place] [address], [place] Glucose [Mass/Vol] 98 mg/dL Normal 70-100 [facility] Comment on above: Order Comment: No: D o not add to previous draw Performed By: #### 1 0070, 01836, 58554, 28862, 03241 #### [facility] [address] [place] [address], [place] Potassium [Moles/Vol] 4.2 mmol/L Normal 3.5-5.1 [facility] Comment on above: Order Comment: No: D o not add to previous draw Performed By: #### 1 0070, 40974, 37520, 94925, 88958 #### [facility] [address] [place] [address], [facility] Sodium [Moles/Vol] 138 mmol/L Normal 136-145 [facility] Comment on above: Order Comment: No: D o not add to previous draw Performed By: #### 1 0070, 03581, 03998, 30255, 51526 #### [facility] [address] Urea nitrogen [Mass/Vol] 20 mg/dL Normal 7-25 [facility] Comment on above: Order Comment: No: D o not add to previous draw Performed By: #### 1 0070, 85080, 29494, 36848, 03985 #### [facility] [address] [place] [address], [facility] CBC W/DIFFon 10-13-2018 ABS BASOPHILS 0.0 10*3/uL Normal 0.0-0.[address] [facility] Comment on above: Order Comment: No: D o not add to previous draw Performed By: #### 5 0103 #### [facility] [address] [facility] [address] ABS IMM GRANS 0.0 10*3/uL Normal 0.0-0.[address] [facility] Comment on above: Order Comment: No: D o not add to previous draw Performed By: #### 5 0103 #### [facility] [address] [place] [address], [facility] ABS NEUTROPHILS 5.1 10*3/uL Normal 1.6-7.6 [facility] Comment on above: Order Comment: No: D o not add to previous draw Performed By: #### 5 0103 #### [facility] [address] [place] [address], [facility] Basophils/100 WBC (Bld) 0.4 % Normal 0.0-1.0 [facility] Comment on above: Order Comment: No: D o not add to previous draw Performed By: #### 5 0103 #### [facility] [address] [place] [address], [facility] Eosinophils (Bld) [#/Vol] 0.1 10*3/uL Normal 0.0-0.5 [facility] Comment on above: Order Comment: No: D o not add to previous draw Performed By: #### 5 0103 #### [facility] [address] [place] [address], [facility] Eosinophils/100 WBC (Bld) 0.8 % Normal 0.0-6.0 [facility] Comment on above: Order Comment: No: D o not add to previous draw Performed By: #### 5 0103 #### [facility] [address] Erythrocyte distribution width (RBC) [Ratio] 12.5 % Normal 11.5-15.0 [facility] Comment on above: Order Comment: No: D o not add to previous draw Performed By: #### 5 0103 #### [facility] [address] [place] [address], [facility] Hematocrit (Bld) [Volume fraction] 44.3 % Normal 39.0-50.0 [facility] Comment on above: Order Comment: No: D o not add to previous draw Performed By: #### 5 0103 #### [facility] [address] [place] [id number], [facility] Hemoglobin (Bld) [Mass/Vol] 15.3 g/dL Normal 13.0-17.0 [facility] Comment on above: Order Comment: No: D o not add to previous draw Performed By: #### 5 0103 #### [facility] [address] [place] [id number], [facility] IMMATURE GRANS 0.3 % Normal 0.0-1.[address] [facility] Comment on above: Order Comment: No: D o not add to previous draw Performed By: #### 5 0103 #### [facility] [address] [place] [id number], [facility] Lymphocytes (Bld) [#/Vol] 2.0 10*3/uL Normal 1.2-4.0 [facility] Comment on above: Order Comment: No: D o not add to previous draw Performed By: #### 5 0103 #### [facility] [address] [place] [address], [facility] Lymphocytes/100 WBC (Bld) 25.4 % Normal 20.0-45.0 [facility] Comment on above: Order Comment: No: D o not add to previous draw Performed By: #### 5 0103 #### [facility] [address] [place] [address], [facility] MCH (RBC) [Entitic mass] 31.4 pg Normal 27.0-33.0 [facility] Comment on above: Order Comment: No: D o not add to previous draw Performed By: #### 5 0103 #### [facility] [address] [place] [address], [facility] MCHC (RBC) [Mass/Vol] 34.5 g/dL Normal 32.0-35.0 [facility] Comment on above: Order Comment: No: D o not add to previous draw Performed By: #### 5 0103 #### [facility] [address] [place] [id number], [facility] MCV (RBC) [Entitic vol] 91.0 fL Normal 82.0-98.0 [facility] Comment on above: Order Comment: No: D o not add to previous draw Performed By: #### 5 0103 #### [facility] [address] [place] [address], [place] Monocytes (Bld) [#/Vol] 0.6 10*3/uL Normal 0.1-1.0 [facility] Comment on above: Order Comment: No: D o not add to previous draw Performed By: #### 5 0103 #### [facility] [address] [place] [address], [place] MONOS 7.9 % Normal 5.0-12.0 [facility] Comment on above: Order Comment: No: D o not add to previous draw Performed By: #### 5 0103 #### [facility] [address] [place] [address], [place] Neutrophils/100 WBC (Bld) 65.2 % Normal 40.0-72.0 [facility] Comment on above: Order Comment: No: D o not add to previous draw Performed By: #### 5 0103 #### [facility] [address] [place] [address], [place] Nucleated RBC/100 WBC (Bld) [Ratio] 0 % Normal 0-0 [facility] Comment on above: Order Comment: No: D o not add to previous draw Performed By: #### 5 0103 #### [facility] [address] [place] [address], [place] PLAT CNT 202 10*3/uL Normal 150-400 [facility] Comment on above: Order Comment: No: D o not add to previous draw Performed By: #### 5 0103 #### [facility] [address] [place] [address], [place] RBC (Bld) [#/Vol] 4.87 10*6/uL Normal 4.20-5.70 [facility] Comment on above: Order Comment: No: D o not add to previous draw Performed By: #### 5 0103 #### [facility] [address] [place] [address], [place] WBC (Bld) [#/Vol] 7.86 10*3/uL Normal 4.00-10.60 [facility] Comment on above: Order Comment: No: D o not add to previous draw Performed By: #### 5 0103 #### [facility] [address] HEMOGLOBIN A1Con 10-13-2018 HbA1c (Bld) [Mass fraction] 5.2 % Normal 4.0-6.0 [facility] Comment on above: Order Comment: No: D o not add to previous draw Performed By: #### 5 6101 #### [facility] [address] [facility] HbA1c (Bld) [Mass fraction] 103 mg/dL Normal 70-126 [facility] Comment on above: Order Comment: No: D o not add to previous draw Performed By: #### 5 6101 #### [facility] [address] History and Physicalon 10-13 History and Physical MR#: [id number] [facility] Pt. Name: Everton Decker Admitted: 10/13/2018 Date of : 1955 Attending Physician: Esvin Layne MD Room #: 3AB [id number] Discharge Date: HISTORY AND PHYSICAL CHIEF COMPLAINT: Chest pain, shortness of breath, palpitations. HISTORY OF PRESENT ILLNESS: 62-year-old male, who was transferred from [facility] for further treatment of atrial fibrillation with RVR and NSTEMI. He states that he was working out in his yard last night, started to experience some discomfort in his chest. He was having a pressure-like sensation and heaviness. He felt like his heart was racing. This lasted for quite some time. He took a shower and tried to rest and sleep. When he woke up in the morning, he still had this sensation of pressure in his chest, was feeling lightheaded and very fatigued. He made an appointment to see his doctor. He had an EKG that was showing atrial fibrillation with RVR. He was then referred to go to [facility] where his troponin was elevated as well. He was given anticoagulation with Lovenox and transferred here. It appears that they tried to rate control with metoprolol and may have achieved lower heart rate, but presently he is sustaining in the 130s to 140s. He is denying any chest pressure, discomfort, or palpitations. He is denying nausea or vomiting. He was having diaphoresis yesterday, but nothing presently. Denies abdominal pain, melena, or rectal bleeding. No coughing or shortness of breath presently. No weakness or numbness. PAST MEDICAL HISTORY: Kidney stones. PAST SURGICAL HISTORY: None. HOME MEDICATIONS: None. ALLERGIES: No known drug allergies. SOCIAL HISTORY: Former smoker. He quit in 1993. Smoked on and off for many years, about 5 cigarettes per day for less than 10 years in total. Has 2 beers monthly. Denies any recreational drug use. FAMILY HISTORY: Parents are both . Mom was diabetic and had hypertension and hyperlipidemia. His dad is alive and had an AR at age of 69. REVIEW OF SYSTEMS: 14-point review of systems obtained, all pertinent positives and negatives have been mentioned in history of present illness. Remainder of systems otherwise negative. PHYSICAL EXAMINATION: GENERAL APPEARANCE: Well-developed, well-nourished, middle-aged male, presently in no acute distress. He is sitting comfortably in his chair. VITAL SIGNS: Temperature 98.8, heart rate 130, respiratory rate 20, blood pressure 89/59, saturating 99% on room air. EYES: Pupils are equal, round, and reactive to light and accommodation. Extraocular muscles are intact. No conjunctival pallor. ENMT: External appearance of ears are unremarkable. Hearing is normal. Mucous membranes are moist. No other abnormalities in oropharynx. NECK: Supple. No cervical adenopathy. No JVD. RESPIRATORY: Lungs are clear to auscultation. Normal respiratory effort. CARDIOVASCULAR: Tachycardic. Irregularly irregular. No murmurs. Peripheral pulses are palpable and symmetric. ABDOMEN: Soft, nontender. Bowel sounds are normal. No guarding or rebound tenderness. EXTREMITIES: No edema in bilateral extremities, no varicosities. SKIN: No rashes or lesions. Skin is warm and dry. PSYCHIATRIC: The patient's recent and remote memory are intact. He is alert and oriented x3. LAB STUDIES: BMP; sodium 130, potassium 138, potassium 4.2, chloride 106, bicarb 24, BUN 20, creatinine 0.81, calcium 9.5, and glucose 98. Magnesium 1.9. Positive 3.4. PT 15.7, INR 1.25. Troponin I 0.17. CBC; WBC 7.86, hemoglobin 15.3, hematocrit 44.3, and platelet count 202. The patient's initial troponin from outside hospital was 0.279. He had proBNP of 1922. His troponin level was trending down. The EKG was reviewed showing atrial fibrillation with RVR on EKG from outside hospital as well as from here. ASSESSMENT AND PLAN: 1. Atrial fibrillation with rapid ventricular response: The patient still sustaining heart rates in the 130s to 140s. His blood pressure is normotensive presently. We will start him on Cardizem drip and provide him with maintenance IV fluids as well. TSH has been ordered. Echocardiogram has been ordered. Cardiology consult has been placed and we will follow up the recommendations tomorrow. He was given Lovenox initially. We will start a heparin drip later tonight. The patient will be kept n.p.o. The patient's mag and potassium will be kept above 2 and 4 respectively. 2. Non-ST elevation myocardial infarction: The patient's troponin level is trending down. He is chest pain-free presently. He will be anticoagulated with heparin. Aspirin and statin will be started. Follow up further Cardiology recommendations.Follo w serial troponin levels and monitor on telemetry. 3. Diet: The patient will be kept n.p.o. for now. 4. Deep venous thrombosis prophylaxis: The patient will be on heparin drip. No additional pharmacological DVT prophylaxis will be required. 5. Advance directives: The patient is full code. Electronically Signed by: Esvin Layne MD 10/14/2018 04:20 A Esvin Layne MD Date Dict: 10/13/2018/08:42 P/Esvin Layne MD Date Trans: 10/13/2018 09:24 P/mmo [id number] Normal [facility] MAGNESIUM BLOODon 10-13-2018 Magnesium [Mass/Vol] 1.9 mg/dL Normal 1.9-2.7 [facility] Comment on above: Order Comment: No: D o not add to previous draw Performed By: #### 1 0070, 07377, 60495, 29338, 68407 #### [facility] [address] PHOSPHORUS BLOODon 9 Phosphate [Mass/Vol] 3.4 mg/dL Normal 2.5-5.0 [facility] Comment on above: Order Comment: No: D o not add to previous draw Performed By: #### 1 0070, 77893, 44343, 51392, 74216 #### [facility] [address] [facility] PROTHROMBIN TIMEon 9 INR Coag (PPP) [Relative time] 1.25 {INR} High 0.91-1.16 [facility] Comment on above: Order Comment: No: D o not add to previous draw Result Comment: ACCC P RECOMMENDED INR FOR WARFARIN THERAPY ------- ------- CONDITION INR PROPHYLAXIS OF VENOUS THROMBOSIS 2-3 (HIGH-RISK SURGERY) TREATMENT OF VENOUS THROMBOSIS 2-3 TREATMENT OF PULMONARY EMBOLISM 2-3 PREVENTION OF SYSTEMIC EMBOLISM: 2-3 ACUTE MYOCARDIAL INFARCTION TISSUE HEART VALVES VALVULAR HEART DISEASE ATRIAL FIBRILLATION RECURRENT SYSTEMIC EMBOLISM MECHANICAL HEART VALVE 2.5-3.5 FROM: ORAL ANTICOAGULANTS. MECHANISM OF ACTION, CLINICAL EFFECTIVENESS, AND OPTIMAL THERAPEUTIC RANGE. CHEST 1995;108:231S-246S. Performed By: #### 5 6101 #### [facility] [address] PT Coag (PPP) [Time] 15.7 s High 12.3-14.8 [facility] Comment on above: Order Comment: No: D o not add to previous draw Result Comment: ALL RESULTS MUST BE INTERPRETED WITH RESPECT TO BLOOD DRAWING ARTIFACT OR DILUTION ERROR OF ANTICOAGULANT AT THE TIME OF SAMPLING. Performed By: #### 5 6101 #### [facility] [address] TROPONIN-Ion 10-13-2018 Troponin I.cardiac [Mass/Vol] 0.17 ng/mL Critically high 0.00-0.04 [facility] Comment on above: Order Comment: No: D o not add to previous draw Result Comment: M-CR ITICAL RESULT(S) REVIEWED, CALLED TO AND READ BACK BY VITALIY ARECHIGA RN AT 20:28 M-TROPONIN INITIAL CRITICAL HIGH; RESPUN AND RETESTED REFERENCE RANGES: 0.00 - 0.04 ng/ml NORMAL 0.05 - 0.50 ng/ml INDETERMINATE > 0.50 ng/ml CONSISTENT WITH AN M.I. Performed By: #### 1 0070, 49476, 43914, 90463, 85260 #### [facility] [address] TSH3 WITH REFLEXon 9 Free T4 [Mass/Vol] 0.67 ng/dL Low 0.71-1.85 [facility] Comment on above: Performed By: #### 1 0070, 13017, 23378, 02197, 52065 #### [facility] [address] [place] [address], [facility] TSH 3RD GENERATION 2.63 uIU/mL Normal 0.34-5.60 [facility] Comment on above: Performed By: #### 1 0070, 49812, 74439, 58960, 25481 #### [facility] [address] Vital Signs Date Time Vital Sign Value Performing Clinician Facility 11-02-2023 15:24-0400 Blood Pressure Location Everton NILL [facility] 11-02-2023 15:24-0400 Diastolic blood pressure 74 mm[Hg] Everton NILL [facility] 11-02-2023 15:24-0400 Heart rate 60 /min Everton NILL [facility] 11-02-2023 15:24-0400 Respiratory rate 16 /min Everton NILL [facility] 11-02-2023 15:24-0400 Systolic blood pressure 126 mm[Hg] Everton NILL [facility] 06-24-2023 09:14-0400 Body height 175.26 cm [facility] 06-24-2023 09:14-0400 Body mass index (BMI) [Ratio] 29.9 kg/m2 [facility] 06-24-2023 09:14-0400 Body weight 92.07 kg [facility] 12-24-2022 09:00-0400 Body height 176.53 cm Maribel Pearl Other [facility] Other 12-24-2022 09:00-0400 Body mass index (BMI) [Ratio] 29.11 kg/m2 Maribel Pearl Other [facility] Other 12-24-2022 09:00-0400 Body weight 90.72 kg Maribel Pearl Other [employer] Other 03-26-2022 09:20-0500 Body height 176.53 cm Arnaud Sutherland Other [employer] Other 03-26-2022 09:20-0500 Body mass index (BMI) [Ratio] 28.38 kg/m2 Arnaud Sutherland Other [employer] Other 03-26-2022 09:20-0500 Body weight 88.45 kg Arnaud Sutherland Other [employer] Other Encounters Encounter Date Encounter Type Care Provider Facility Start: 11-02-2023 End: 11-02-2023 ambulatory Everton R LIGIAL [facility] Start: 11-02-2023 End: 11-02-2023 Patient encounter procedure Everton R NILL [facility] Start: 09-28-2023 ambulatory Everton LOPEZ Facility: [facility] Start: 09-21-2023 End: 09-21-2023 ambulatory [facility] Start: 06-24-2023 End: 06-24-2023 ambulatory Maribel Pearl Facility:[facility] Start: 06-24-2023 End: 06-24-2023 ambulatory MD Cesilia Donohue Work Phone: [facility] Work Phone: Start: 06-24-2023 End: 06-24-2023 Patient encounter procedure [facility] Physician [facility] Work Phone: Start: 12-24-2022 End: 12-24-2022 ambulatory Maribel Pearl Other [employer] Other Start: 12-24-2022 Office outpatient vi sit 15 minutes Maribel Pearl [facility] Neurosurgery Start: 06-26-2022 End: 07-22-[address] CESILIA DONOHUE . Facility:[facility] Start: 03-26-2022 End: 03-26-2022 ambulatory Arnaud Sutherland Other [employer] Other Start: 03-26-2022 Office outpatient ne w 30 minutes Arnaud Sutherland [facility] Neurosurgery Start: 03-02-2022 End: 03-03-[address] CESILIA DONOHUE . Facility:[facility] Start: 02-17-2022 End: 02-18-[address] CESILIA DONOHUE . Facility: Start: 02-02-2022 End: 02-03-[address] CESILIA DONOHUE . Facility: Start: 10-13-2018 End: 10-15-2018 Evaluation and management of inpatient DAT COCHRAN Facility:[facility] Procedures Date Procedure Procedure Detail Performing Clinician Start: 06-24-2023 X-ray of lumbar spin e, six views including bending views MD Cesilia Donohue Work Phone: Start: 03-02-[address] ANANT DONOHUE . Comment on above: Performed By: #### P [facility] #### [facility] [address] [place] [address] Dr. Jayden Tolentino Start: 10-14-2018 FLUOROSCOPY OF MULTI PLE CORONARY ARTERIES USING OTH CONTRAST DANY [place] Start: 04-11-2012 Colonoscopy Everton NI LL Cardiac catheterization Pedro ael NILL Colonoscopy Everton NILL Flexible cystoscopy Everton NILL Plan of Treatment Date Care Activity Detail Author XR Lumbar spine Views [facility] Payers Date Payer Category Payer Self-pay 1958 Medicare [id number] 1955 Unknown [id number] 1955 Unknown [id number] 1955 Unknown [id number] 1955 Unknown [id number] 1955 Unknown [id number] 1955 Unknown [id number] Unknown [id number] Unknown [employer] [id number] Unknown [id number] Social History Date Type Detail Facility Sex Assigned At [facility] Start: 1955 Sex Assigned At Male F [facility] Start: 11-02-2023 Tobacco smoking status Ex-smoker (fi nding) [facility] Tobacco smoking status Never [facility] Functional Status Date Assessment Result Facility 11-02-2023 Functional Status N/A [facility] Clinical Notes 03-26-2022 to 11-02-2023 Note Date & Type Note Facility 11-02-2023 Note General Surgery Offi ce/Clinic Note Chief Complaint consultation for colonoscopy HPI Staff 67 year old male presents on consultation from Dr. Donohue for screening colonoscopy. Denies abdominal or rectal pain. No rectal bleeding or change in bowel habits. Denies nausea or vomiting. No unexplained weight loss. Last colonoscopy completed 03/2012 with incomplete bowel prep. No known family history of colon cancer. History of Present Illness 67 yo male with h/o atrial fibrillation, htn, hypercholesterolemia, referred for colorectal screening; patient denies change in bms or blood in stools, no abd complaints; no abd operations, last colonoscopy 2012, unable to intubate cecal bulb; liquid stool throughout colon; on regular asa daily, no NSAIDs; no tobacco use; no fmhx of GI malignancy or IBD. Review of Systems PHQ Score Initial Depression Screen Score: 0 SCORE ROS - Provider Constitutional: no fever, no sweats, no weight loss. Eyes: yes glasses, no blurred vision, no visual loss. ENMT: no dentures, no hoarseness, no swallowing difficulties, no hearing loss, no ear infection(s), no nose bleeds. Cardiovascular: normal blood pressure, no chest pain, regular heartbeat, no heart murmur. Respiratory: no shortness of breath, no cough, no asthma, no wheezing. Gastrointestinal: no nausea, no vomiting, no diarrhea, no constipation, no blood in stool, no change in bowel habits, no abdominal pain, no hepatitis. Genitourinary: no kidney stones, no urine infection, no dysuria. Musculoskeletal: no pain, no weakness. Skin: no changing moles, no rash, no skin lumps. Neurologic: no seizures, no epilepsy, no headache. Psychiatric: no emotional or psychiatric problem. Heme/Lymph: no bleeding problems, no anemia, no blood clots, no transfusions. Allergy/Immunologic: no swollen lymph nodes/glands, no IV drug abuse. Other: Additional ROS info: Except as noted in the above Review of Systems and in the History of Present Illness, all other systems have been reviewed and are negative or noncontributory. Physical Exam Vitals & Measurements HR: 60(Peripheral) RR: 16 BP: 126/74 HT: 70 in HT: 177.8 cm WT: 90.2 kg WT: 198.44 lb BMI: 28.53 HEENT: normal conjunctiva, sclera clear, no scleral icterus, EOM intact, PERRLA, oral mucosa moist without lesions. Neck: trachea midline, no mass, symmetric, no thyromegaly or nodules, no adenopathy Respiratory: lungs CTA, respirations non labored. Cardiovascular: regular rate and rhythm, no murmur, no pedal edema or varicosities. Gastrointestinal: soft, non distended, no tenderness, no masses, no palpable hernias, diastasis recti no, no hepatosplenomegaly; normal bs Lymphatic: no cervical adenopathy, no supraclavicular adenopathy. Musculoskeletal: normal gait, digits and nails without infection, nodes, cyanosis, clubbing. Skin: no rashes, no lesions, no ulcers, no subcutaneous nodules, induration. Psychiatric/Neuro: oriented to time, place, person, judgement normal, affect appropriate for age, insight intact, no focal deficits. Tests: review of old records completed , Discussed surgical options, risks, and possible complications with patient. Assessment/Plan 1. Screening for malignant neoplasm of colon (Z12.11: Encounter for screening for malignant neoplasm of colon) plan colonoscopy under anesthesia, informed consent obtained. Follow-up No qualifying data available Problem List/Past Medical History Ongoing Atrial fibrillation BMI 28.0-28.9,adult BPH (benign prostatic hyperplasia) Hypercholesterolemia Hypertension Overweight Screening for malignant neoplasm of colon Sensorineural hearing loss Spondylolisthesis of lumbar region Historical No qualifying data Procedure/Surgical History Colonoscopy (04/11/2012), Cardiac catheterization, Colonoscopy, Flexible cystoscopy. Medications aspirin 325 mg Oral EC Tab, 325 mg= 1 tab(s), Oral, Daily Lipitor 80 mg Tab, 80 mg= 1 tab(s), Oral, Daily Metoprolol tartrate 25 mg Tab, 25 mg= 1 tab(s), Oral, BID Allergies No Known Allergies No Known Medication Allergies Social History Alcohol Current, Beer, 1-2 times per month, 11/02/2023 Substance Abuse - Denies Substance Abuse, 11/02/2023 Tobacco Former smoker, quit more than 30 days ago Tobacco Use:. Never Smokeless Tobacco Use:. Cigarettes, 0.5 per day. Started age 19.0 Years. Stopped age 33 Years., 11/02/2023 Family History Primary malignant neoplasm of lung: Brother. [facility] Comment on above: Result Comment: Elec tronically Signed By: JOHN MISTRY, Everton Whitten\.br\Date and Time Signed: 11/02/23 16:00 EDT 09-21-2023 Note Patient here for 1 y ear follow up CAD, PAF, and hyperlipidemia. No labs or imaging since last visit. Says he's due to see PCP for routine labs, but not yet scheduled. Denies chest pain, SOB, palpitations, and syncope. Patient requesting ECG today since he hasn't had one in awhile. Review of Systems Musculoskeletal: Positive for back pain. Neurological: Positive for light-headedness (upon standing up too quickly). All other systems reviewed and are negative. [facility] 09-21-2023 Note Cardiovascular Medic [facility] SUBJECTIVE Chief Complaint Patient presents with Coronary Artery Disease Hypertension Atrial Fibrillation Hyperlipidemia Everton Decker is a 67 y.o. male here for follow-up. HPI PMHx: CAD, HLD, PAF, sinus bradycardia He states he has been felling well since last seen. Denies c/o CP, dyspnea, orthopnea, PND, LE edema, dizziness/LH, palpitations, syncope. His BP is very high in clinic today - manual readings. He is adamant his BP is controlled at home. BP at home running 130s/80s. Patient Active Problem List Diagnosis Coronary artery disease involving [place] coronary artery of [place] heart without angina pectoris Paroxysmal atrial fibrillation (CMS/HCC) Sinus bradycardia Elevated heart rate with elevated blood pressure without diagnosis of hypertension Hyperlipidemia Spondylolisthesis, lumbar region Past Medical History: Diagnosis Date Abnormal ECG Arrhythmia Atrial fibrillation (CMS/HCC) Coronary artery disease Hyperlipidemia Myocardial infarction (CMS/HCC) Family History Problem Relation Name Age of Onset Coronary artery disease Father Social History Tobacco Use Smoking status: Former Types: Cigarettes Smokeless tobacco: Never Substance Use Topics Alcohol use: Yes Comment: occasional No Known Allergies ROS Musculoskeletal: Positive for back pain. Neurological: Positive for light-headedness (upon standing up too quickly). All other systems reviewed and are negative. OBJECTIVE Visit Vitals BP (!) 174/92 Pulse 51 Ht 1.765 m (5' 9.5 ) Wt 91.2 kg (201 lb) SpO2 97% BMI 29.26 kg/m??? Smoking Status Former BSA 2.11 m??? Medications: Current Outpatient Medications: aspirin 325 mg tablet, in the morning., Disp: , Rfl: atorvastatin (Lipitor) 40 mg tablet, TAKE 1 TABLET BY MOUTH AT BEDTIME, Disp: 90 tablet, Rfl: 3 metoprolol tartrate (Lopressor) 25 mg tablet, Take 1 tablet by mouth in the morning and at bedtime., Disp: , Rfl: Physical Exam Constitutional: Appearance: Normal appearance. He is normal weight. HENT: Head: Normocephalic and atraumatic. Right Ear: External ear normal. Left Ear: External ear normal. Eyes: Extraocular Movements: Extraocular movements intact. Pupils: Pupils are equal, round, and reactive to light. Neck: Vascular: No carotid bruit. Cardiovascular: Rate and Rhythm: Normal rate and regular rhythm. Pulses: Normal pulses. Heart sounds: Normal heart sounds. Pulmonary: Effort: Pulmonary effort is normal. Breath sounds: Normal breath sounds. Abdominal: General: Bowel sounds are normal. Palpations: Abdomen is soft. Musculoskeletal: General: Normal range of motion. Cervical back: Neck supple. Right lower leg: No edema. Left lower leg: No edema. Skin: General: Skin is warm and dry. Neurological: General: No focal deficit present. Mental Status: He is alert and oriented to person, place, and time. Psychiatric: Mood and Affect: Mood normal. Behavior: Behavior normal. Thought Content: Thought content normal. Judgment: Judgment normal. Labs: Legacy Encounter on 10/15/2018 Component Date Value Ref Range Status Ventricular Rate 10/15/2018 65 BPM Final Atrial Rate 10/15/2018 65 BPM Final WI Interval 10/15/2018 164 ms Final QRS DURATION 10/15/2018 84 ms Final QT Interval 10/15/2018 384 ms Final QTC CALCULATION(BEZET) 10/15/2018 399 ms Final P Britton 10/15/2018 39 degrees Final R-Britton 10/15/2018 22 degrees Final T Wave Britton 10/15/2018 27 degrees Final Diagnosis 10/15/2018 Final Value:Normal sinus rhythm Normal ECG When compared with ECG of 13-OCT-2018 18:54, (unconfirmed) Sinus rhythm has replaced Atrial fibrillation Vent. rate has decreased BY 64 BPM Nonspecific T wave abnormality no longer evident in Lateral Confirmed by Corie Tobar ([id number]) on 10/15/2018 12:31:39 PM No results found for: EXTCMP , BMPR1A , CBCDIF , BNP , LASAP , RED 03/02/22 CBC normal Renal function and liver function normal Chol 99, trig 54. HDL 44, LDL 44.2 A1C 5.8 normal TSH normal Testing/Procedures: 10/14/18 Echo EKG IMPRESSION: Normal sinus rhythm Nonspecific T wave abnormality Abnormal ECG When compared with ECG of 13-AUG-2022 15:43, No significant change was found Confirmed by Kp DEUTSCH, L.S. ([id number]) on 08/14/2022 10:29:44 10/14/18 Cardiac cath Stress test 10/14/2018: Regular perfusion study shows no evidence of ischemia. Normal myocardial perfusion study. Normal global left ventricular systolic function. No ischemic EKG changes seen. LVEF was 71%. EKG 10/24/2018: Marked sinus bradycardia heart rate 48 bpm, Early repolarization ASSESSMENT/PLAN: Diagnoses and all orders for this visit: Coronary artery disease involving [place] coronary artery of sk[place] heart without angina pectoris PAF (paroxysmal atrial fibrillation) (CMS/HCC) - ECG 12 lead Sinus bradycardia Mixed hyperlipidemia Elevated h (more content not included)... [facility] 12-24-2022 Evaluation note Encounter Date Diagnosis Assessment Notes Nov, Spinal stenosis of lumbar region, unspecified whether neurogenic claudication present (ICD-10 - M48.061) MRI reviewed. Patient would likely benefit from pain management with an L4- 5 transforaminal injections. Will refer to Dr. Diaz in [place], pain management. Continue with conservative therapy. Pharmacological management will continue with current medications as prescribed continue with the lidocaine patches and the muscle relaxer as needed. Discussion of use of OTC tumeric. Will follow-up in 6 months. Nov, Spondylolisthes is, lumbar region (ICD-10 - M43.16) [facility] Other 12-29-2022 Evaluation note* Encounter Date Diagnosis Assessment Notes Treatment Notes Treatment Clinical Notes Feb, Lumbar stenosis without neurogenic claudication (ICD-10 - M48.061) I independently reviewed the plain x-ray of the lumbar spine and the MRI of the lumbar spine. This patient has a spondylolisthesis at L4-5 with moderate to severe stenosis. He has very very minimal neurogenic claudication. A simple Kenalog type injection in the buttock region gave him great relief of symptoms for a long period of time. He has no true neurogenic claudication. At this point I just do not think surgical intervention is needed but he may develope more symptoms shortly. After a long discussion we agreed that he would follow-up in 3 months for reevaluation to make sure he is not progressing. Feb, Spondylolisthesis, lumbar region (ICD-10 - M43.16) [facility] Other evaluation + Plan note No data available for this section [facility] [place] Evaluation note* Author Maribel [facility] Authored June 24, 2023 9:4 4am Michael Kumar, a 67year old p atient with a chief complaint of pain radiating down the left leg. The pain originates in the left gluteal region and extends to the lower calf. This condition has persisted for a minimum of two months, and the patient cannot identify a specific causative event. The intensity of the pain varies, with some days being described as severe, cant walk. Michael has encountered challenges in achieving pain relief, despite the use of patches, ice, and heat treatments. The patient has previously undergone two courses of steroid therapy, which failed to provide any relief. Currently, Michael takes Flexeril at bedtime to aid in sleep and relies on Ibuprofen 800 for minor pain relief earlier in the day. Clinical examination reveals a positive straight leg raise test on the left and a slight hyper-reflexivity on the same side. 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 Michael is receptive to non-surgical interventions for pain management, including injections and physical therapy. He has previously undergone a distal clavicle resection and is acquainted with the use of diagnostic injections. The patient expresses a strong desire to find pain relief and is inclined to consider less invasive treatment options prior to entertaining the possibility of surgery. [facility] Work Phone: Evaluation note* Diagnosis Onset Date Resolution Status Spondylolisthesis, lumbar region acute [facility] Work Phone: History general Narrative - Reported* Type Description Date Medical History Arthritis Medical History kidney stones Medical History high cholesterol Surgical History colonoscopy Hospitalization History see surgical hx [facility] Other Hospital Discharge instructions No data available for this section [email or web address] Progress note No data available for this section [facility] [place] Summary Purpose Family History No Family History Records FoundNo Family History Records FoundNo Family History Records FoundNo Family History Records Found No data available for this section No Family History Records Found Advance Directives No Advanced Directives Records Found Advance Directive Response Recorded Date/ Time Advance Directives No February 10:23am Hospital Course Note MR#: [id number] [facility] Pt. Name: Everton Decker Admitted: 10/13/2018 Discharged: 10/15/2018 Date of : 1955 Physician: Dat Cochran MD DISCHARGE SUMMARY PRIMARY CARE PHYSICIAN: Cesilia Donohue M.D. PRINCIPAL DIAGNOSIS: Paroxysmal atrial fibrillation. SECONDARY DIAGNOSES: 1. Coronary artery disease, status post cardiac cath showing nonobstructive disease. 2. Paroxysmal atrial [id number] of 0, now requiring long-term anticoagulation. 3. Dix-VD-ccydmnzll myocardial infarction-type 2. 4. Nephrolithiasis. PROCEDURES THIS ADMISSION: Transthoracic echocardiogram, stress test, cardiac cath. CONSULTATIONS THIS ADMISSION: Cardiology. HOSPITAL COURSE: The patient is a 62-year-old male with past medical history as listed above, who was transferred to our hospital from [facility] for treatment of atrial fibrillation with RVR and NSTEMI. He reports that he was working on his yard prior to presentation and started to have some chest (more content not included)... Reason for Referral Reason EVALUATE AND TREAT Diagnosis 1 Spondylolisthesis, l umbar region (M43.16) Referral Organization [facility] urosurgery Referring Provider First Name Maribel Referring Provider Last Name Ryanne Referring Provider Specialty Nurse Pract dash Referred Organization [facility] Referred Provider Steffany Jacobs Referred Address [address], [place],[address] Referred Provider Specialty Pain Medicin e Referral Priority Routine Chief Complaint and Reason for Visit Chief Complaint 6 month follow up Reason for Visit Spondylolisthesis, l umbar region Chief Complaint 6 month follow up M43.16 Reason for Visit Spondylolisthesis, l umbar region Additional Source Comments (unrecognized sect ion and content) No Status Records FoundNo Status Records FoundNo Status Records FoundNo Status Records FoundNo Status Records Found INFORMATION SOURCE (unrecogn ized section and content) DATE CREATED AUTHOR 11/26/2018 [facility] DATE CREATED AUTHOR AUTHOR'S ORGANIZ ATION 07/29/2022 [facility] DATE CREATED AUTHOR AUTHOR'S ORGANIZ ATION 06/25/2023 [facility] DATE CREATED AUTHOR AUTHOR'S ORGANIZ ATION 09/22/2023 [facility] DATE CREATED AUTHOR AUTHOR'S ORGANIZ ATION 11/05/2023 [facility] REASON FOR VISIT (unrecogniz ed section and content) referred by Dr. Charanjit harrison, Lumbar6 month Follow up Care Teams (unrecognized sec tion and content) Team Status: Active Member Role Status Dates Cesilia Donohue MD Primary Care Provider Active Team Status: Inactive Member Role Status Dates Cesilia Donohue MD Primary Care Provider Active Start: June 24, 2023 End: June 24, 2023 SERGEY [place] Attending Provider Active Start: June 24, 2023 End: June 24, 2023 Goals (unrecognized section and content) Goals may be documented in a n alternate section FOR RECORDS PERTAINING TO PATIENTS WHO ARE OR HAVE BEEN ENROLLED IN A CHEMICAL DEPENDENCY/SUBSTANCEABUSE PROGRAM, SOME INFORMATION MAY BE OMITTED. This clinical summary was aggregated from multiple sources. Caution should be exercised in using it in the provision of clinical care. This summary normalizes information from multiple sources, and as a consequence, information in this document may materially change the coding, format and clinical context of patient data. In addition, data may be omitted in some cases. CLINICAL DECISIONS SHOULD BE BASED ON THE PRIMARY CLINICAL RECORDS. [facility] [employer] provides no warranty or guarantee of the accuracy or completeness of information in this document.
[2023-11-24 07:15] VITALS: BP 126/71; PULSE 62; TEMP 35.8; O2SAT 96; BMI 29.2
[2023-11-24] MEDS: LACTATED RINGER'S SOLUTION 1,000 ML 50 ML IV (07:37)
[2023-11-24 09:23] VITALS: BP 107/87; PULSE 68; TEMP 36.3; O2SAT 96
[2023-11-24 09:38] VITALS: BP 98/82; PULSE 61; O2SAT 97
[2023-11-24 09:53] VITALS: BP 112/74; PULSE 58; O2SAT 99
== END 2023-11-24 09:53 | disposition home or self-care (01) ==
PROVIDERS: PCP Family Medicine; Visit Provider Surgery
PROC: (CPT G0121; principal; 2023-11-24 08:20)
DX: Z12.11 Encounter for screening for malignant neoplasm of colon (principal); I48.91 Unspecified atrial fibrillation; I10 Essential (primary) hypertension; E78.00 Pure hypercholesterolemia, unspecified; Z87.891 Personal history of nicotine dependence; H90.5 Unspecified sensorineural hearing loss
CPT/HCPCS: G0121; J2704

== ENCOUNTER 2024-04-10 11:00 | Outpatient (OUT) | payer MEDICARE, SELFPAY ==
--- NOTE | 2024-04-10 11:17 | XR_ITS ---
The [address] [address] Patient Name: EVERTON DECKER MRN: [id number] date: 1955 Sex: M Assigned Patient Location: [facility] Current Patient Location: [facility] Accession/Order Number: [id number] Exam Date: 04/10/2024 11:25 Report Date: 04/10/2024 13:49 At the request of: CESILIA RAMEY Procedure: XR shoulder RT min 2V PROCEDURE: XR shoulder RT min 2V COMPARISON: None. HISTORY: Right Shoulder Pain FINDINGS: BONES:No fracture, acute abnormality, or significant arthropathy. Minimal osteoarthropathy of the acromioclavicular joint SOFT TISSUES:Negative. No visible soft tissue swelling. EFFUSION:None visible. OTHER: Negative. XR/XR shoulder RT min 2V IMPRESSION: No acute abnormality Electronically authenticated by: KILO OLSEN Date: 04/10/2024 13:49
--- OUTSIDE RECORDS SUMMARY | 2024-04-10 11:17 | XMS_ITS | CCD ---
Author Organization [facility] Care Team Providers Care Scratch Finisher Name Role Phone DAT COCHRAN Admitting Unavailable DAT COCHRAN Attending Unavailable CESILIA DONOHUE Referring Unavailable CESILIA DONOHUE Primary Care Unavailable DANY CANADA A Surgeon Unavailable NE Procedure Practitioner Unavailab Arnaud Bello Unavailable KAROLINE ., DR LOMAS Admitting Unavailable HOY ., DR LOMAS Primary Care Unavailable HOY ., DR LOMAS Consulting Unavailable HOY ., DR LOMAS Attending Unavailable SHAHAB, DR MIKE Whitten Consulting Unavailable HOY ., DR LOMAS Admitting Unavailable HOY ., DR LOMAS Primary Care Unavailable HOY ., DR LOMAS Consulting Unavailable HOY ., DR LOMAS Attending Unavailable CHATSWORTH, DR KILO Linton Consulting Unavailable HOY ., DR LOMAS Primary Care Unavailable HOY ., DR LOMAS Consulting Unavailable HOY ., DR LOMAS Attending Unavailable HOY ., DR LOMAS Admitting Unavailable HOY ., DR LOMAS Primary Care Unavailable MARIBEL PEARL Admitting Unavailable MARIBEL PEARL Attending Unavailable Maribel Pearl Unavailable MD Cesilia Donohue Primary Care Provider [phone] SERGEY Pearl Attending Provider Maribel Pearl Attending Unavailable Maribel Pearl Admitting Unavailable Cesilia Donohue Primary Care Unavailable DORIS ESQUIVEL Attending Unavailable Cesilia Donohue Primary Care Physician Cesilia Donohue Referring Unavailable Everton LOPEZ Attending Unavailable Everton LOPEZ Attending Unavailable Allergies Allergy Classification Reported Allergen(s) Allergy Type Date of Onset Reaction(s) Facility (1 source) No Known Medication Allergies; Translations: [No Known Medication Allergies] Propensity to adverse reactions (disorder) [place] Repository Medications Current Medications Medication Drug Class(es) [...] Test Name Value Interpretation Reference Range Facility Reminderson 11-25-2023 Reminders Reminders From: Precious Perez LPN To: G[facility] - Clinical; Sent: 11/25/2023 11:02:51 EDT Show up: 10/23/2033 07:00:00 EDT Subject: colonoscopy recall Due Date/Time: 11/23/2033 07:00:00 EDT Reminder/Recall Patient due for screening colonoscopy 11/23/2033. Normal [place] Ambulatory Visit Summaryon 0 11-02-2023 Ambulatory Visit [...] for choosing us for your care. Normal [place] Office Visiton 09-21-2023 Follow-up visit [id number] Everton Decker 1955 M Date Provider Department Center 09/21/2023 Janice-DORIS ESQUIVEL [facility] Family History Problem Relation Age of Onset Coronary artery disease Father Family Status - Relation Status Age at Father Level of Service:15945 NE OFFICE/OUTPATIENT ESTABLISHED MOD MDM 30 MIN Reason for Visit and Comments: Coronary Artery Disease [187] Hypertension [801186] Atrial Fibrillation [80] Hyperlipidemia [182] Normal [facility] XR lumbar spine 6V w bending on 06-24-2023 XR lumbar spine 6V w bending [facility] [place] [address] XRay Report Signed Patient: Everton Decker MR#: [id number] : 1955 Acct:[id number] Age/Sex: 67 / M ADM Date: 06/24/23 Loc: XD Room: Type: [facility] Attending Dr: Maribel ESPOSITOC Copies to: SERGEY Caraballo Ordering Provider: SERGEY [...] Fito Rousseau M.D.06/24/2023 2:37 PM Dictation Location: [place] [address] Transcribed By: [facility] 06/24/23 1437 Dictated By: Fito Rousseau DO 06/24/23 1433 Signed By: 06/24/23 1437 Normal [facility] CBC AUTO DIFFon 03-02-2022 BASO # 0.0 103/ul Normal 0.0-0.1 [facility] Comment on above: Performed By: #### C BC #### [facility] [address] [address] [address] Jayden Tolentino Basophils/100 WBC (Bld) 0.3 % Normal 0.2-2.0 [facility] Comment on above: Performed By: #### C BC #### [facility] [address] [place] [address] Dr. Jayden Tolentino EO # 0.1 103/ul Normal 0.0-0.7 [facility] Comment on above: Performed By: #### C BC #### [facility] [address] [place] [address] Dr. Jayden Tolentino Eosinophils/100 WBC (Bld) 1.1 % Normal 0.9-7.0 [facility] Comment on above: Performed By: #### C BC #### [facility] [address] [place] [address] Dr. Jayden Tolentino Erythrocyte distribution width (RBC) [Ratio] 12.5 % Normal 11.0-15.0 [facility] Comment on above: Performed By: #### C BC #### [facility] [address] [place] [address] Dr. Jayden Tolentino Hematocrit (Bld) [Volume fraction] 40.6 % Critically low 42.0-54.0 [facility] Comment on above: Performed By: #### C BC #### [facility] [address] [place] [address] Dr. Jayden Tolentino Hemoglobin (Bld) [Mass/Vol] 14.2 g/dL Normal 14.0-18.0 [facility] Comment on above: Performed By: #### C BC #### [facility] [address] [place] [address] Dr. Jayden Tolentino IG # 0.02 10e3/ul Normal 0.00-0.03 [facility] Comment on above: Performed By: #### C BC #### [facility] [address] [place] [address] Dr. Jayden Tolentino IG % 0.3 % Normal 0.0-0.5 [facility] Comment on above: Performed By: #### C BC #### [facility] [address] [place] [address] Dr. Jayden Tolentino LYMPH # 1.5 103/ul Normal 1.2-3.8 [facility] Comment on above: Performed By: #### C BC #### [facility] [address] [place] [address] Dr. Jayden Tolentino Lymphocytes/100 WBC (Bld) 24.2 % Normal 20.5-60.0 [facility] Comment on above: Performed By: #### C BC #### [facility] [address] [place] [address] Dr. Jayden Tolentino MANUAL DIFF REQ NO Normal [facility] Comment on above: Performed By: #### C BC #### [facility] [address] [place] [address] Dr. Jayden Tolentino MCH (RBC) [Entitic mass] 31.2 pg Normal 25.9-34.0 [facility] Comment on above: Performed By: #### C BC #### [facility] [address] [place] [address] Dr. Jayden Tolentino MCHC (RBC) [Mass/Vol] 35.0 g/dL Normal 29.9-35.2 [facility] Comment on above: Performed By: #### C BC #### [facility] [address] [place] [address] Dr. Jayden Tolentino MCV (RBC) [Entitic vol] 89.2 fL Normal 80.0-94.0 [facility] Comment on above: Performed By: #### C BC #### [facility] [address] [place] [address] Dr. Jayden Tolentino MONO # 0.5 103/ul Normal 0.3-0.8 [facility] Comment on above: Performed By: #### C BC #### [facility] [address] [place] [address] Dr. Jayden Tolentino Monocytes/100 WBC (Bld) 7.6 % Normal 1.7-12.0 [facility] Comment on above: Performed By: #### C BC #### [facility] [address] [place] [address] Dr. Jayden Tolentino NEUT # 4.2 103/ul Normal 1.4-6.5 [facility] Comment on above: Performed By: #### C BC #### [facility] [address] [address] [address] Jayden Tolentino Neutrophils/100 WBC (Bld) 66.5 % Normal 43.0-75.0 [facility] Comment on above: Performed By: #### C BC #### [facility] [address] [address] [address] Jayden Tolentino Platelet mean volume (Bld) [Entitic vol] 9.9 fL Normal 9.5-13.5 [facility] Comment on above: Performed By: #### C BC #### [facility] [address] [address] [address] Jayden Tolentino PLT 165 103/ul Normal 150-450 [facility] Comment on above: Performed By: #### C BC #### [facility] [address] [place] [address] Dr. Jayden Tolentino RBC 4.55 106/ul Critically low 4.70-6.10 [facility] Comment on above: Performed By: #### C BC #### [facility] [address] [address] [address] Jayden Tolentino WBC 6.3 103/ul Normal 4.0-11.0 [facility] Comment on above: Performed By: #### C BC #### [facility] [address] [place] [address] Dr. Jayden Tolentino FREE THYROXINE INDEX T7on FTI 1.90 Normal 1.30-4.50 [facility] Comment on above: Performed By: #### T 7, CMP, TSH, LIPID #### [facility] [address] [address] [address] Jayden Tolentino T3U 34.0 % Normal 33.0-40.0 [facility] Comment on above: Performed By: #### T 7, CMP, TSH, LIPID #### [facility] [address] [address] [address] Jayden Tolentino T4 [Mass/Vol] 5.60 ug/dL Normal 4.50-12.10 [facility] Comment on above: Performed By: #### T 7, CMP, TSH, LIPID #### [facility] [address] [address] [address] Jayden Tolentino GLYCOHEMOGLOBIN A1Con 2021 ADA RECOMMENDATION SEE BELOW Normal [facility] Comment on above: Result Comment: ADA RECOMMENDED LIMIT 4.0 - 6.0 ADA THERAPEUTIC TARGET < 7.0 ACTION SUGGESTED > 7.0 Performed By: #### A 1C #### [facility] [address] [address] [address] Jayden Tolentino Glucose [Mass/Vol] 120 mg/dL Normal [facility] Comment on above: Performed By: #### A 1C #### [facility] [address] [place] [address] Dr. Jayden Tolentino HbA1c (Bld) [Mass fraction] 5.8 % Normal 4.5-6.2 [facility] Comment on above: Performed By: #### A 1C #### [facility] [address] [place] [address] Dr. Jayden Tolentino LIPID PROFILEon 03-02-2022 CHOL-HDL RATIO NORM SEE BELOW Normal [facility] Comment on above: Result Comment: 3.3 - 4.4 LOW RISK 4.4 - 7.1 AVERAGE RISK 7.1 - 11.0 MODERATE RISK >11.0 HIGH RISK Performed By: #### T 7, CMP, TSH, LIPID #### [facility] [address] [place] [address] Dr. Jayden Tolentino Cholesterol [Mass/Vol] 99 mg/dL Normal <=200 [facility] Comment on above: Performed By: #### T 7, CMP, TSH, LIPID #### [facility] [address] [place] [address] Dr. Jayden Tolentino Cholesterol in HDL [Mass/Vol] 44 mg/dL Normal 40-60 [facility] Comment on above: Performed By: #### T 7, CMP, TSH, LIPID #### [facility] [address] [address] [address] Jayden Tolentino Cholesterol in LDL [Mass/Vol] 44.2 mg/dL Normal [facility] Comment on above: Performed By: #### T 7, CMP, TSH, LIPID #### [facility] [address] [address] [address] Jayden Tolentino Cholesterol.total/Ch olesterol in HDL [Mass ratio] 2.3 {ratio} Normal [facility] Comment on above: Performed By: #### T 7, CMP, TSH, LIPID #### [facility] [address] [address] [address] Jayden Tolentino HDL NORMAL > or = 60 mg/dl - LO W CARDIOVASCULAR RISK <40 mg/dl - HIGH CARDIOVASCULAR RISK Normal [facility] Comment on above: Performed By: #### T 7, CMP, TSH, LIPID #### [facility] [address] [address] [address] Jayden Tolentino LDL CALC NORMAL SEE BELOW Normal [facility] Comment on above: Result Comment: <100 mg/dl OPTIMAL 100 - 129 mg/dl NEAR OR ABOVE OPTIMAL 130 - 159 mg/dl BORDERLINE HIGH 160 - 189 mg/dl HIGH >190 mg/dl VERY HIGH Performed By: #### T 7, CMP, TSH, LIPID #### [facility] [address] [address] [address] Jayden Tolentino Triglyceride [Mass/Vol] 54 mg/dL Normal <=150 [facility] Comment on above: Performed By: #### T 7, CMP, TSH, LIPID #### [facility] [address] [address] [address] Jayden Tolentino VLDL CALC 10.8 mg/dL Normal [facility] Comment on above: Performed By: #### T 7, CMP, TSH, LIPID #### [facility] [address] [address] [address] Jayden Tolentino PROF 14(COMP METB)on 022 Albumin [Mass/Vol] 3.8 g/dL Normal 3.4-5.0 [facility] Comment on above: Performed By: #### T 7, CMP, TSH, LIPID #### [facility] [address] [place] [address] Dr. Jayden Tolentino Albumin/Globulin [Mass ratio] 1.3 {ratio} Normal [facility] Comment on above: Performed By: #### T 7, CMP, TSH, LIPID #### [facility] [address] [address] [address] Jayden Tolentino ALP [Catalytic activity/Vol] 83 U/L Normal 46-116 [facility] Comment on above: Performed By: #### T 7, CMP, TSH, LIPID #### [facility] [address] [address] [address] Jayden Tolentino ALT [Catalytic activity/Vol] 43 U/L Normal 16-63 [facility] Comment on above: Performed By: #### T 7, CMP, TSH, LIPID #### [facility] [address] [place] [address] Dr. Jayden Tolentino Anion gap [Moles/Vol] 11.1 mmol/L Normal [facility] Comment on above: Performed By: #### T 7, CMP, TSH, LIPID #### [facility] [address] [place] [address] Dr. Jayden Tolentino AST [Catalytic activity/Vol] 24 U/L Normal 15-37 [facility] Comment on above: Performed By: #### T 7, CMP, TSH, LIPID #### [facility] [address] [place] [address] Dr. Jayden Tolentino Bilirubin [Mass/Vol] 0.8 mg/dL Normal 0.2-1.0 [facility] Comment on above: Performed By: #### T 7, CMP, TSH, LIPID #### [facility] [address] [place] [address] Dr. Jayden Tolentino Calcium [Mass/Vol] 9.0 mg/dL Normal 8.5-10.1 [facility] Comment on above: Performed By: #### T 7, CMP, TSH, LIPID #### [facility] [address] [place] [address] Dr. Jayden Tolentino Chloride [Moles/Vol] 105 mmol/L Normal 98-107 [facility] Comment on above: Performed By: #### T 7, CMP, TSH, LIPID #### [facility] [address] [place] [address] Dr. Jayden Tolentino CO2 [Moles/Vol] 26.5 mmol/L Normal 21.0-32.0 [facility] Comment on above: Performed By: #### T 7, CMP, TSH, LIPID #### [facility] [address] [address] [address] Jayden Tolentino Creatinine [Mass/Vol] 0.84 mg/dL Normal 0.70-1.30 [facility] Comment on above: Performed By: #### T 7, CMP, TSH, LIPID #### [facility] [address] [address] [address] Jayden Tolentino EGFR-AF SAMOAN >60 Normal >=60 [facility] Comment on above: Performed By: #### T 7, CMP, TSH, LIPID #### [facility] [address] [place] [address] Dr. Jayden Tolentino EGFR-NON AF SAMOAN >60 Normal >=60 [facility] Comment on above: Performed By: #### T 7, CMP, TSH, LIPID #### [facility] [address] [address] [address] Jayden Tolentino Globulin (S) [Mass/Vol] 3.0 g/dL Normal [facility] Comment on above: Performed By: #### T 7, CMP, TSH, LIPID #### [facility] [address] [place] [address] Dr. Jayden Tolentino Glucose [Mass/Vol] 99 mg/dL Normal 74-106 [facility] Comment on above: Performed By: #### T 7, CMP, TSH, LIPID #### [facility] [address] [address] [address] Jayden Tolentino Potassium [Moles/Vol] 4.6 mmol/L Normal 3.5-5.1 [facility] Comment on above: Performed By: #### T 7, CMP, TSH, LIPID #### [facility] [address] [address] [address] Jayden Tolentino Protein [Mass/Vol] 6.8 g/dL Normal 6.4-8.2 [facility] Comment on above: Performed By: #### T 7, CMP, TSH, LIPID #### [facility] [address] [address] [address] Jayden Tolentino Sodium [Moles/Vol] 138 mmol/L Normal 136-145 [facility] Comment on above: Performed By: #### T 7, CMP, TSH, LIPID #### [facility] [address] [address] [address] Jayden Tolentino Urea nitrogen [Mass/Vol] 19.0 mg/dL Critically high 7.0-18.0 [facility] Comment on above: Performed By: #### T 7, CMP, TSH, LIPID #### [facility] [address] [address] [address] Jayden Tolentino Urea nitrogen/Creatinine [Mass ratio] 22.6 mg/mg Normal [facility] Comment on above: Performed By: #### T 7, CMP, TSH, LIPID #### [facility] [address] [address] [address] Jayden Tolentino TSHon 03-02-2022 TSH 2.208 uIU/mL Normal 0.358-3.740 [facility] Comment on above: Performed By: #### T 7, CMP, TSH, LIPID #### [facility] [address] [address] [address] Jayden Tolentino MRI LSPINE WO CONon [...] MIKE GUDINO Date: 2022-02-18 06:29 Normal [facility] XR LSPINE MIN 4 VIEWSon XR LSPINE MIN 4 VIEWS EXAMINATION: XR [...] by: KILO OLSEN Date: 2022-02-02 17:44 Normal [facility] BASIC METABOLIC PANELon 09-27 Calcium [Mass/Vol] 8.7 mg/dL Normal 8.6-10.3 [facility] Comment on above: Order Comment: No: D o not add to previous draw Performed By: #### 5 6101 #### [facility] [address] [facility] [place] [address], [facility] [[email or web address]] Chloride [Moles/Vol] 109 mmol/L High 98-107 [facility] Comment on above: Order Comment: No: D o not add to previous draw Performed By: #### 5 6101 #### [facility] [address] [place] [address], [place] CO2 [Moles/Vol] 27 mmol/L Normal 21-31 [facility] Comment on above: Order Comment: No: D o not add to previous draw Performed By: #### 5 6101 #### [facility] [address] [place] [address], [place] Creatinine [Mass/Vol] 0.87 mg/dL Normal 0.70-1.30 [facility] Comment on above: Order Comment: No: D o not add to previous draw Performed By: #### 5 6101 #### [facility] [address] [place] [address], [place] GFR/1.73 sq M predicted among blacks MDRD (S/P/Bld) [Vol rate/Area] mL/min/{1.73_m2} Normal >60 [facility] Comment on above: Order Comment: No: D o not add to previous draw Performed By: #### 5 6101 #### [facility] [address] [place] [address], [place] GFR/1.73 sq M predicted among non-blacks MDRD (S/P/Bld) [Vol rate/Area] mL/min/{1.73_m2} Normal >60 [facility] Comment on above: Order Comment: No: D o not add to previous draw Performed By: #### 5 6101 #### [facility] [address] [place] [address], [place] Glucose [Mass/Vol] 95 mg/dL Normal 70-100 [facility] Comment on above: Order Comment: No: D o not add to previous draw Performed By: #### 5 6101 #### [facility] [address] [place] [address], [place] Potassium [Moles/Vol] 4.3 mmol/L Normal 3.5-5.1 [facility] Comment on above: Order Comment: No: D o not add to previous draw Performed By: #### 5 6101 #### [facility] [address] [place] [address], [facility] [[email or web address]] Sodium [Moles/Vol] 140 mmol/L Normal 136-145 [facility] Comment on above: Order Comment: No: D o not add to previous draw Performed By: #### 5 [id number] #### [facility] [address] [place] [address], [facility] [[email or web address]] Urea nitrogen [Mass/Vol] 17 mg/dL Normal 7-25 [facility] Comment on above: Order Comment: No: D o not add to previous draw Performed By: #### 5 6101 #### [facility] [address] [place] [id number], [facility] [[email or web address]] CBC COMPLETE BLOOD COUNTon 0 - Erythrocyte distribution width (RBC) [Ratio] 12.2 % Normal 11.5-15.0 [facility] Comment on above: Order Comment: No: D o not add to previous draw Performed By: #### 5 [id number] #### [facility] [address] [place] [id number], [facility] [[email or web address]] Hematocrit (Bld) [Volume fraction] 40.6 % Normal 39.0-50.0 [facility] Comment on above: Order Comment: No: D o not add to previous draw Performed By: #### 5 [id number] #### [facility] [address] [place] [id number], [facility] [[email or web address]] Hemoglobin (Bld) [Mass/Vol] 13.7 g/dL Normal 13.0-17.0 [facility] Comment on above: Order Comment: No: D o not add to previous draw Performed By: #### 5 [id number] #### [facility] [address] [place] [address], [place] MCH (RBC) [Entitic mass] 31.1 pg Normal 27.0-33.0 [facility] Comment on above: Order Comment: No: D o not add to previous draw Performed By: #### 5 [id number] #### [facility] [address] [place] [address], [facility] [[email or web address]] MCHC (RBC) [Mass/Vol] 33.7 g/dL Normal 32.0-35.0 [facility] Comment on above: Order Comment: No: D o not add to previous draw Performed By: #### 5 [id number] #### [facility] [address] [place] [address], [facility] [[email or web address]] MCV (RBC) [Entitic vol] 92.1 fL Normal 82.0-98.0 [facility] Comment on above: Order Comment: No: D o not add to previous draw Performed By: #### 5 [id number] #### [facility] [address] [place] [address], [facility] [[email or web address]] Nucleated RBC/100 WBC (Bld) [Ratio] 0 % Normal 0-0 [facility] Comment on above: Order Comment: No: D o not add to previous draw Performed By: #### 5 [id number] #### [facility] [address] [facility] [place] [address], [facility] [[email or web address]] PLAT CNT 164 10*3/uL Normal 150-400 [facility] Comment on above: Order Comment: No: D o not add to previous draw Performed By: #### 5 6101 #### [facility] [address] [facility] [place] [address], [facility] [[email or web address]] RBC (Bld) [#/Vol] 4.41 10*6/uL Normal 4.20-5.70 The [facility] Comment on above: Order Comment: No: D o not add to previous draw Performed By: #### 5 6101 #### [facility] [address] [place] [address], [facility] [[email or web address]] WBC (Bld) [#/Vol] 6.69 10*3/uL Normal 4.00-10.60 [facility] Comment on above: Order Comment: No: D o not add to previous draw Performed By: #### 5 [id number] #### [facility] [address] Cardiovascular Lab Reporton 10-15-2018 Cardiovascular Lab Report [facility] Patient Name: Everton Decker [facility] MR #: [id number] Physician: Dany Canada, Department of M.D. Medicine Service Date: 10/14/2018 Division of Birthdate: 1955 Cardiology Room #: [id number] Adult Cardiovascular Services [facility] [address] [place], [place] [address] Cardiovascular Laboratory Report FINAL IMPRESSIONS: 1. 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 2. Plaque disease of the right coronary artery and left circumflex coronary artery. 3. Normal global left ventricular systolic function by noninvasive imaging. RECOMMENDATIONS/PLAN: 1. Aggressive cardiovascular risk factor modification. 2. Optimization of medical management; infrlmja-mn-kfne intensity statin therapy, aspirin, a beta-zhen are indicated. 3. Further investigations and management for the patient's paroxysmal atrial fibrillation as appropriate. 4. Further recommendations deferred to the inpatient services. PROCEDURES: Bilateral selective coronary angiography, limited from angiography, placement of a 6-Nauruan MynxGrip closure device. METHODS: After risks, benefits, [...] performed. This was exchanged out for a 6-Nauruan 11 cm sheath. Bilateral selective coronary angiography was performed. Using JL4 and JR4 catheters. After reviewing the images, it was elected to conclude the procedure. A 6-Nauruan MynxGrip closure device was deployed per protocol [...] midvessel stenosis and mild plaque distally. A evkbf-cs-zqkmmlqx sized second diagonal shows a 40%-50% ostial [...] P Dany Canada M.D. Date Dict: 10/14/2018/05:35 Tre/Dany Canada M.D. Date Trans: 10/15/2018 02:13 Bradley/josse [id number] cc: Cesilia Donohue M.D. [address] [id number] Normal [facility] UFH HEPARIN ASSAYon 10-16-19 19 UNFRACTIONATED HEPARIN <0.10 Critically low 0.30-0.70 [facility] Comment on above: Result Comment: Cameron roxaban and Apixaban will interfere with the anti Xa assay used to monitor UFH and LMWH. Results called. Accurately read back by Alyssa Vanegas RN at 0632 Performed By: #### 5 1913 #### [facility] [address] BASIC METABOLIC PANELon - Calcium [Mass/Vol] 8.6 mg/dL Normal 8.6-10.3 [facility] Comment on above: Order Comment: No: D o not add to previous draw Performed By: #### 5 6101 #### [facility] [address] [place] [address], [place] Chloride [Moles/Vol] 106 mmol/L Normal 98-107 [facility] Comment on above: Order Comment: No: D o not add to previous draw Performed By: #### 5 6101 #### [facility] [address] [place] [address], [place] CO2 [Moles/Vol] 27 mmol/L Normal 21-31 [facility] Comment on above: Order Comment: No: D o not add to previous draw Performed By: #### 5 6101 #### [facility] [address] [place] [address], [place] Creatinine [Mass/Vol] 0.82 mg/dL Normal 0.70-1.30 [facility] Comment on above: Order Comment: No: D o not add to previous draw Performed By: #### 5 6101 #### [facility] [address] [place] [address], [place] GFR/1.73 sq M predicted among blacks MDRD (S/P/Bld) [Vol rate/Area] mL/min/{1.73_m2} Normal >60 [facility] Comment on above: Order Comment: No: D o not add to previous draw Performed By: #### 5 6101 #### [facility] [address] [place] [address], [place] GFR/1.73 sq M predicted among non-blacks MDRD (S/P/Bld) [Vol rate/Area] mL/min/{1.73_m2} Normal >60 [facility] Comment on above: Order Comment: No: D o not add to previous draw Performed By: #### 5 6101 #### [facility] [address] [place] [address], [place] Glucose [Mass/Vol] 100 mg/dL Normal 70-100 [facility] Comment on above: Order Comment: No: D o not add to previous draw Performed By: #### 5 6101 #### [facility] [address] [place] [address], [facility] [[email or web address]] Potassium [Moles/Vol] 4.0 mmol/L Normal 3.5-5.1 [facility] Comment on above: Order Comment: No: D o not add to previous draw Performed By: #### 5 6101 #### [facility] [address] [place] [address], [facility] [[email or web address]] Sodium [Moles/Vol] 139 mmol/L Normal 136-145 [facility] Comment on above: Order Comment: No: D o not add to previous draw Performed By: #### 5 6101 #### [facility] [address] [place] [address], [facility] [[email or web address]] Urea nitrogen [Mass/Vol] 19 mg/dL Normal 7-25 [facility] Comment on above: Order Comment: No: D o not add to previous draw Performed By: #### 5 6101 #### [facility] [address] [place] [address], [facility] [[email or web address]] CBC COMPLETE BLOOD COUNTon 0 - Erythrocyte distribution width (RBC) [Ratio] 12.4 % Normal 11.5-15.0 [facility] Comment on above: Order Comment: No: D o not add to previous draw PER CHERYL BURKS UFH IS NOT DUE UNTIL 6 AM; OK TO DRAW ALL A.M. LABS AT 6AM. Performed By: #### 5 0608 #### [facility] [address] [place] [address], [facility] [[email or web address]] Hematocrit (Bld) [Volume fraction] 41.1 % Normal 39.0-50.0 [facility] Comment on above: Order Comment: No: D o not add to previous draw PER FREDDIE MCDUFFIEH IS NOT DUE UNTIL 6 AM; OK TO DRAW ALL A.M. LABS AT 6AM. Performed By: #### 5 0608 #### [facility] [address] [place] [address], [facility] [[email or web address]] Hemoglobin (Bld) [Mass/Vol] 14.4 g/dL Normal 13.0-17.0 [facility] Comment on above: Order Comment: No: D o not add to previous draw PER RN VITALIY, UFH IS NOT DUE UNTIL 6 AM; OK TO DRAW ALL A.M. LABS AT 6AM. Performed By: #### 5 0608 #### [facility] [address] [place] [address], [facility] [[email or web address]] MCH (RBC) [Entitic mass] 31.2 pg Normal 27.0-33.0 [facility] Comment on above: Order Comment: No: D o not add to previous draw PER CHERYL BURKS, UFH IS NOT DUE UNTIL 6 AM; OK TO DRAW ALL A.M. LABS AT 6AM. Performed By: #### 5 0608 #### [facility] [address] [facility] [address], [facility] [[email or web address]] MCHC (RBC) [Mass/Vol] 35.0 g/dL Normal 32.0-35.0 [facility] Comment on above: Order Comment: No: D o not add to previous draw PER CHERYL BURKS, UFH IS NOT DUE UNTIL 6 AM; OK TO DRAW ALL A.M. LABS AT 6AM. Performed By: #### 5 0608 #### [facility] [address] [facility] [place] [address], [facility] [[email or web address]] MCV (RBC) [Entitic vol] 89.2 fL Normal 82.0-98.0 [facility] Comment on above: Order Comment: No: D o not add to previous draw PER CHERYL BURKS, UFH IS NOT DUE UNTIL 6 AM; OK TO DRAW ALL A.M. LABS AT 6AM. Performed By: #### 5 0608 #### [facility] [address] [place] [address], [facility] [[email or web address]] Nucleated RBC/100 WBC (Bld) [Ratio] 0 % Normal 0-0 [facility] Comment on above: Order Comment: No: D o not add to previous draw PER CHERYL BURKS, UFH IS NOT DUE UNTIL 6 AM; OK TO DRAW ALL A.M. LABS AT 6AM. Performed By: #### 5 0608 #### [facility] [address] [facility] [place] [address], [facility] [[email or web address]] PLAT CNT 172 10*3/uL Normal 150-400 [facility] Comment on above: Order Comment: No: D o not add to previous draw PER CHERYL BURKS, UFH IS NOT DUE UNTIL 6 AM; OK TO DRAW ALL A.M. LABS AT 6AM. Performed By: #### 5 0608 #### [facility] [address] [facility] [place] [address], [facility] [[email or web address]] RBC (Bld) [#/Vol] 4.61 10*6/uL Normal 4.20-5.70 [facility] Comment on above: Order Comment: No: D o not add to previous draw PER CHERYL BURKS, UFH IS NOT DUE UNTIL 6 AM; OK TO DRAW ALL A.M. LABS AT 6AM. Performed By: #### 5 0608 #### [facility] [address] [facility] [place] [address], [facility] [[email or web address]] WBC (Bld) [#/Vol] 6.83 10*3/uL Normal 4.00-10.60 [facility] Comment on above: Order Comment: No: D o not add to previous draw PER CHERYL BURKS UFH IS NOT DUE UNTIL 6 AM; OK TO DRAW ALL A.M. LABS AT 6AM. Performed By: #### 5 0608 #### [facility] [address] [facility]. [address] TROPONIN-Ion 10-14-2018 Troponin I.cardiac [Mass/Vol] 0.12 ng/mL Critically high 0.00-0.04 [facility] Comment on above: Order Comment: No: D o not add to previous draw Result Comment: M-NE EVIOUS CRITICAL RESULT REFERENCE RANGES: 0.00 - 0.04 ng/ml NORMAL 0.05 - 0.50 ng/ml INDETERMINATE > 0.50 ng/ml CONSISTENT WITH AN M.I. Performed By: #### 5 6101 #### [facility] [address] [employer]. [address] Troponin I.cardiac [Mass/Vol] 0.16 ng/mL Critically high 0.00-0.04 [facility] Comment on above: Order Comment: No: D o not add to previous draw Result Comment: M-NE EVIOUS CRITICAL RESULT REFERENCE RANGES: 0.00 - 0.04 ng/ml NORMAL 0.05 - 0.50 ng/ml INDETERMINATE > 0.50 ng/ml CONSISTENT WITH AN M.I. Performed By: #### 3 5200 #### [facility] [address] UFH HEPARIN ASSAYon 10-15-19 19 UNFRACTIONATED HEPARIN 0.36 IU/mL Normal 0.30-0.70 [facility] Comment on above: Result Comment: Cameron roxaban and Apixaban will interfere with the anti Xa assay used to monitor UFH and LMWH. Performed By: #### 5 6101 #### [facility] [address] [facility] [address] UNFRACTIONATED HEPARIN >1.00 Critically high 0.30-0.70 [facility] Comment on above: Order Comment: No: D o not add to previous draw Result Comment: Cameron roxaban and Apixaban will interfere with the anti Xa assay used to monitor UFH and LMWH. Result called to JERRY BELLO rn 0745 Performed By: #### 5 6101 #### [facility] [address] [place] [address], [facility] [[email or web address]] BASIC METABOLIC PANELon 09-26 Calcium [Mass/Vol] 9.5 mg/dL Normal 8.6-10.3 [facility] Comment on above: Order Comment: No: D o not add to previous draw Performed By: #### 1 0070, 37841, 67149, 19222, 18164 #### [facility] [address] [place] [address], [place] Chloride [Moles/Vol] 106 mmol/L Normal 98-107 [facility] Comment on above: Order Comment: No: D o not add to previous draw Performed By: #### 1 0070, 75182, 86520, 89534, 69111 #### [facility] [address] [place] [address], [place] CO2 [Moles/Vol] 24 mmol/L Normal 21-31 [facility] Comment on above: Order Comment: No: D o not add to previous draw Performed By: #### 1 0070, 34072, 27540, 73973, 62305 #### [facility] [address] [place] [address], [place] Creatinine [Mass/Vol] 0.81 mg/dL Normal 0.70-1.30 [facility] Comment on above: Order Comment: No: D o not add to previous draw Performed By: #### 1 0070, 33658, 87063, 76260, 16158 #### [facility] [address] [place] [address], [place] GFR/1.73 sq M predicted among blacks MDRD (S/P/Bld) [Vol rate/Area] mL/min/{1.73_m2} Normal >60 [facility] Comment on above: Order Comment: No: D o not add to previous draw Performed By: #### 1 0070, 76559, 70576, 37748, 42205 #### [facility] [address] [place] [address], [place] GFR/1.73 sq M predicted among non-blacks MDRD (S/P/Bld) [Vol rate/Area] mL/min/{1.73_m2} Normal >60 [facility] Comment on above: Order Comment: No: D o not add to previous draw Performed By: #### 1 0070, 53116, 22216, 52182, 18168 #### [facility] [address] [place] [address], [facility] [[email or web address]] Glucose [Mass/Vol] 98 mg/dL Normal 70-100 [facility] Comment on above: Order Comment: No: D o not add to previous draw Performed By: #### 1 0070, 02890, 94068, 90421, 31975 #### [facility] [address] [place] [address], [facility] [[email or web address]] Potassium [Moles/Vol] 4.2 mmol/L Normal 3.5-5.1 [facility] Comment on above: Order Comment: No: D o not add to previous draw Performed By: #### 1 0070, 88209, 05425, 18567, 65011 #### [facility] [address] [facility] [place] [address], [facility] [[email or web address]] Sodium [Moles/Vol] 138 mmol/L Normal 136-145 [facility] Comment on above: Order Comment: No: D o not add to previous draw Performed By: #### 1 0070, 04471, 86044, 40578, 43859 #### [facility] [address] [facility]. [address] Urea nitrogen [Mass/Vol] 20 mg/dL Normal 7-25 [facility] Comment on above: Order Comment: No: D o not add to previous draw Performed By: #### 1 0070, 09724, 28574, 62321, 53974 #### [facility] [address] [facility] [place] [address], [facility] [[email or web address]] CBC W/DIFFon 10-13-2018 ABS BASOPHILS 0.0 10*3/uL Normal 0.0-0.2 [facility] Comment on above: Order Comment: No: D o not add to previous draw Performed By: #### 5 0103 #### [facility] [address] [place] [address], [facility] [[email or web address]] ABS IMM GRANS 0.0 10*3/uL Normal 0.0-0.2 [facility] Comment on above: Order Comment: No: D o not add to previous draw Performed By: #### 5 0103 #### [facility] [address] [place] [address], [facility] [[email or web address]] ABS NEUTROPHILS 5.1 10*3/uL Normal 1.6-7.6 [facility] Comment on above: Order Comment: No: D o not add to previous draw Performed By: #### 5 0103 #### [facility] [address] [place] [address], [facility] [[email or web address]] Basophils/100 WBC (Bld) 0.4 % Normal 0.0-1.0 [facility] Comment on above: Order Comment: No: D o not add to previous draw Performed By: #### 5 0103 #### [facility] [address] [place] [address], [facility] [[email or web address]] Eosinophils (Bld) [#/Vol] 0.1 10*3/uL Normal 0.0-0.5 [facility] Comment on above: Order Comment: No: D o not add to previous draw Performed By: #### 5 0103 #### [facility] [address] [facility] [place] [address], [facility] [[email or web address]] Eosinophils/100 WBC (Bld) 0.8 % Normal 0.0-6.0 [facility] Comment on above: Order Comment: No: D o not add to previous draw Performed By: #### 5 0103 #### [facility] [address] [facility] [place] [address], [facility] [[email or web address]] Erythrocyte distribution width (RBC) [Ratio] 12.5 % Normal 11.5-15.0 [facility] Comment on above: Order Comment: No: D o not add to previous draw Performed By: #### 5 0103 #### [facility] [address] [place] [id number], [facility] [[email or web address]] Hematocrit (Bld) [Volume fraction] 44.3 % Normal 39.0-50.0 [facility] Comment on above: Order Comment: No: D o not add to previous draw Performed By: #### 5 0103 #### [facility] [address] [place] [address], [facility] [[email or web address]] Hemoglobin (Bld) [Mass/Vol] 15.3 g/dL Normal 13.0-17.0 [facility] Comment on above: Order Comment: No: D o not add to previous draw Performed By: #### 5 0103 #### [facility] [address] [place] [address], [facility] [[email or web address]] IMMATURE GRANS 0.3 % Normal 0.0-1.0 [facility] Comment on above: Order Comment: No: D o not add to previous draw Performed By: #### 5 0103 #### [facility] [address] [place] [address], [facility] [[email or web address]] Lymphocytes (Bld) [#/Vol] 2.0 10*3/uL Normal 1.2-4.0 [facility] Comment on above: Order Comment: No: D o not add to previous draw Performed By: #### 5 0103 #### [facility] [address] [facility] [address], [facility] [[email or web address]] Lymphocytes/100 WBC (Bld) 25.4 % Normal 20.0-45.0 [facility] Comment on above: Order Comment: No: D o not add to previous draw Performed By: #### 5 0103 #### [facility] [address] [facility] [address], [facility] [[email or web address]] MCH (RBC) [Entitic mass] 31.4 pg Normal 27.0-33.0 [facility] Comment on above: Order Comment: No: D o not add to previous draw Performed By: #### 5 0103 #### [facility] [address] [place] [address], [facility] [[email or web address]] MCHC (RBC) [Mass/Vol] 34.5 g/dL Normal 32.0-35.0 [facility] Comment on above: Order Comment: No: D o not add to previous draw Performed By: #### 5 0103 #### [facility] [address] [place] [address], [facility] [[email or web address]] MCV (RBC) [Entitic vol] 91.0 fL Normal 82.0-98.0 [facility] Comment on above: Order Comment: No: D o not add to previous draw Performed By: #### 5 0103 #### [facility] [address] [place] [address], [facility] [[email or web address]] Monocytes (Bld) [#/Vol] 0.6 10*3/uL Normal 0.1-1.0 [facility] Comment on above: Order Comment: No: D o not add to previous draw Performed By: #### 5 0103 #### [facility] [address] [place] [address], [facility] [[email or web address]] MONOS 7.9 % Normal 5.0-12.0 [facility] Comment on above: Order Comment: No: D o not add to previous draw Performed By: #### 5 0103 #### [facility] [address] [place] [address], [facility] [[email or web address]] Neutrophils/100 WBC (Bld) 65.2 % Normal 40.0-72.0 [facility] Comment on above: Order Comment: No: D o not add to previous draw Performed By: #### 5 0103 #### [facility] [address] [facility] [address], [facility] [[email or web address]] Nucleated RBC/100 WBC (Bld) [Ratio] 0 % Normal 0-0 [facility] Comment on above: Order Comment: No: D o not add to previous draw Performed By: #### 5 0103 #### [facility] [address] [place] [address], [facility] [[email or web address]] PLAT CNT 202 10*3/uL Normal 150-400 [facility] Comment on above: Order Comment: No: D o not add to previous draw Performed By: #### 5 0103 #### [facility] [address] [place] [address], [facility] [[email or web address]] RBC (Bld) [#/Vol] 4.87 10*6/uL Normal 4.20-5.70 [facility] Comment on above: Order Comment: No: D o not add to previous draw Performed By: #### 5 0103 #### [facility] [address] [place] [address], [facility] [[email or web address]] WBC (Bld) [#/Vol] 7.86 10*3/uL Normal 4.00-10.60 [facility] Comment on above: Order Comment: No: D o not add to previous draw Performed By: #### 5 0103 #### [facility] [address] HEMOGLOBIN A1Con 10-13-2018 HbA1c (Bld) [Mass fraction] 5.2 % Normal 4.0-6.0 [facility] Comment on above: Order Comment: No: D o not add to previous draw Performed By: #### 5 6101 #### [facility] [address] [place] [address], [facility] [[email or web address]] HbA1c (Bld) [Mass fraction] 103 mg/dL Normal 70-126 [facility] Comment on above: Order Comment: No: D o not add to previous draw Performed By: #### 5 6101 #### [facility] [address] [facility] [address] History and Physicalon 10-13 History and Physical MR#: [id number] [facility] Pt. Name: Everton Decker Admitted: 10/13/2018 Date of : 1955 Attending Physician: Esvin Layne MD Room #: 3AB [id number] Discharge Date: HISTORY AND PHYSICAL CHIEF COMPLAINT: Chest pain, shortness of breath, palpitations. HISTORY OF PRESENT ILLNESS: 62-year-old male, who was transferred from [facility] for further treatment of atrial fibrillation with [...] He was then referred to go to [facility] where his troponin was elevated as [...] His dad is alive and had an MA at age of 69. REVIEW OF SYSTEMS: [...] Layne MD Date Trans: 10/13/2018 09:24 P/mmo [id number] Normal [facility] MAGNESIUM BLOODon 10-13-2018 Magnesium [Mass/Vol] 1.9 mg/dL Normal 1.9-2.7 [facility] Comment on above: Order Comment: No: D o not add to previous draw Performed By: #### 1 0070, 78563, 53290, 42704, 55293 #### [facility] [address] [facility]. [address] PHOSPHORUS BLOODon 9 Phosphate [Mass/Vol] 3.4 mg/dL Normal 2.5-5.0 [facility] [facility] Comment on above: Order Comment: No: D o not add to previous draw Performed By: #### 1 0070, 06695, 35817, 07483, 98517 #### [facility] [address] PROTHROMBIN TIMEon 9 INR Coag (PPP) [Relative time] 1.25 {INR} High 0.91-1.16 [facility] Comment on above: Order Comment: [...] 1995;108:231S-246S. Performed By: #### 5 6101 #### [facility] [address] PT Coag (PPP) [Time] 15.7 s High 12.3-14.8 [facility] Comment on above: Order Comment: No: D o not add to previous draw Result Comment: ALL RESULTS MUST BE INTERPRETED WITH RESPECT TO BLOOD DRAWING ARTIFACT OR DILUTION ERROR OF ANTICOAGULANT AT THE TIME OF SAMPLING. Performed By: #### 5 6101 #### [facility] [address] TROPONIN-Ion 10-13-2018 Troponin I.cardiac [Mass/Vol] 0.17 ng/mL Critically high 0.00-0.04 [facility] Comment on above: Order Comment: No: D o not add to previous draw Result Comment: M-CR ITICAL RESULT(S) REVIEWED, CALLED TO AND READ BACK BY VITALIY ARECHIGA RN AT 20:28 M-TROPONIN INITIAL CRITICAL HIGH; RESPUN AND RETESTED REFERENCE RANGES: 0.00 - 0.04 ng/ml NORMAL 0.05 - 0.50 ng/ml INDETERMINATE > 0.50 ng/ml CONSISTENT WITH AN M.I. Performed By: #### 1 0070, 18446, 31928, 98407, 85883 #### [facility] [address] TSH3 WITH REFLEXon 9 Free T4 [Mass/Vol] 0.67 ng/dL Low 0.71-1.85 [facility] Comment on above: Performed By: #### 1 0070, 35397, 73705, 78718, 71216 #### [facility] [address] [place] [address], [facility] [[email or web address]] TSH 3RD GENERATION 2.63 uIU/mL Normal 0.34-5.60 The [facility] Comment on above: Performed By: #### 1 0070, 22243, 41185, 55002, 30577 #### [facility] [address] [place] [address], [facility] [[email or web address]] Vital Signs Date Time Vital Sign Value Performing Clinician Facility 11-02-2023 15:24-0400 Blood Pressure Location [facility] 11-02-2023 15:24-0400 Diastolic blood pressure 74 mm[Hg] [facility] 11-02-2023 15:24-0400 Heart rate 60 /min [facility] 11-02-2023 15:24-0400 Respiratory rate 16 /min [facility] 11-02-2023 15:24-0400 Systolic blood pressure 126 mm[Hg] [facility] 06-24-2023 09:14-0400 Body height 175.26 cm [facility] 06-24-2023 09:14-0400 Body mass index (BMI) [Ratio] 29.9 kg/m2 [facility] 06-24-2023 09:14-0400 Body weight 92.07 kg [facility] 12-24-2022 09:00-0400 Body height 176.53 cm Maribel Pearl Other [facility] Other 12-24-2022 09:00-0400 Body mass index (BMI) [Ratio] 29.11 kg/m2 Maribel Pearl Other [facility] Other 12-24-2022 09:00-0400 Body weight 90.72 kg Maribel Pearl Other [facility] Other 03-26-2022 09:20-0500 Body height 176.53 cm Arnaud Sutherland Other [facility] Other 03-26-2022 09:20-0500 Body mass index (BMI) [Ratio] 28.38 kg/m2 Arnaud Sutherland Other [facility] Other 03-26-2022 09:20-0500 Body weight 88.45 kg Arnaud Sutherland Other [employer] Other Encounters Encounter Date Encounter Type Care Provider Facility Start: 11-24-2023 End: 11-24-2023 ambulatory Everton LOPEZ Facility:[id number] Start: 11-02-2023 End: 11-02-2023 ambulatory Cesilia Donohue Facility:[facility] Start: 11-02-2023 End: 11-02-2023 Patient encounter procedure Everton LOPEZ [facility] Start: 09-28-2023 ambulatory Cesilia Donohue Facility:[facility] Start: 09-21-2023 End: 09-21-2023 ambulatory [facility] Start: 06-24-2023 End: 06-24-2023 ambulatory Maribel Pearl Facility:[facility] Start: 06-24-2023 End: 06-24-2023 ambulatory MD Cesilia Donohue Work Phone: [facility] Work Phone: Start: 06-24-2023 End: 06-24-2023 Patient encounter procedure [facility] Work Phone: Start: 12-24-2022 End: 12-24-2022 ambulatory Maribel Pearl Other [facility] [employer] Other Start: 12-24-2022 Office outpatient vi sit 15 minutes Maribel Pearl [facility] Start: 06-26-2022 End: 07-22-[address] CESILIA DONOHUE . Facility: Start: 03-26-2022 End: 03-26-2022 ambulatory Arnaud Sutherland Other [facility] [employer] Other Start: 03-26-2022 Office outpatient ne w 30 minutes Arnaud Sutherland [facility] Start: 03-02-2022 End: 03-03-[address] CESILIA DONOHUE . Facility: Start: 02-17-2022 End: 02-18-[address] CESILIA DONOHUE . Facility: Start: 02-02-2022 End: 02-03-[address] CESILIA DONOHUE . Facility: Start: 10-13-2018 End: 10-15-2018 Evaluation and management of inpatient DAT COCHRAN Facility:[facility] Procedures Date Procedure Procedure Detail Performing Clinician Start: 06-24-2023 X-ray of lumbar spin e, six views including bending views MD Cesilia Donohue Work Phone: Start: 03-02-[address] ANANT DONOHUE . Comment on above: Performed By: #### P [facility] #### [facility] [address] [place] [address] Dr. Jayden Tolentino Start: 10-14-2018 FLUOROSCOPY OF MULTI PLE CORONARY ARTERIES USING OTH CONTRAST DANY [place] Start: 04-11-2012 Colonoscopy Everton PATEL Cardiac catheterization Pedro aegary NILL Colonoscopy Everton LOPEZ Flexible cystoscopy Everton LOPEZ Plan of Treatment Date Care Activity Detail Author XR Lumbar spine Views [facility] Payers Date Payer Category Payer Self-pay 1958 Medicare [id number] 1955 Unknown [id number] 1955 Unknown [id number] 1955 Unknown [id number] 1955 Unknown [id number] 1955 Unknown [id number] 1955 Unknown [id number] 1955 Unknown [id number] Unknown [id number] Unknown [facility] [id number] Unknown [id number] Social History Date Type Detail Facility Sex Assigned At [facility] Start: 1955 Sex Assigned At Male F [facility] Start: 11-02-2023 Tobacco smoking status Ex-smoker (fi nding) [facility] Tobacco smoking status Never [facility] Functional Status Date Assessment Result Facility 11-02-2023 Functional Status N/A [facility] Clinical Notes 03-26-2022 to 11-02-2023 Note Date [...] History Primary malignant neoplasm of lung: Brother. [place] Comment on above: Result Comment: Elec tronically Signed By: JOHN MISTRY, Everton Clifton\Date and Time Signed: 11/02/23 16:00 EDT 09-21-2023 [...] All other systems reviewed and are negative. [facility] 09-21-2023 Note Cardiovascular Medic [facility] SUBJECTIVE Chief Complaint Patient presents with [...] Problem List Diagnosis Coronary artery disease involving peoria coronary artery of peoria heart without angina pectoris Paroxysmal atrial fibrillation [...] Final Atrial Rate 10/15/2018 65 BPM Final NE Interval 10/15/2018 164 ms Final QRS DURATION 10/15/2018 84 ms Final QT Interval 10/15/2018 384 ms Final QTC CALCULATION(BEZET) 10/15/2018 399 ms Final P [place] 10/15/2018 39 degrees Final R-[place] 10/15/2018 22 degrees Final T Wave [place] 10/15/2018 27 degrees Final Diagnosis 10/15/2018 Final [...] for this visit: Coronary artery disease involving peoria coronary artery of pe[place] heart without angina pectoris PAF (paroxysmal atrial fibrillation) ([facility]) - ECG 12 lead Sinus bradycardia Mixed hyperlipidemia Elevated h (more content not included)... 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 Michael is receptive to non-surgical interventions for pain management, including injections and physical therapy. He has previously undergone a distal clavicle resection and is acquainted with the use of diagnostic injections. The patient expresses a strong desire to find pain relief and is inclined to consider less invasive treatment options prior to entertaining the possibility of surgery. [facility] Work Phone: Evaluation note* Diagnosis Onset Date Resolution Status Spondylolisthesis, lumbar region acute [facility] Work Phone: History general Narrative - Reported* Type Description Date Medical History Arthritis Medical History kidney stones Medical History high cholesterol Surgical History colonoscopy Hospitalization History see surgical hx [facility] Other Hospital Discharge instructions No data available for this section [facility] Progress note No data available for this section [facility] Summary Purpose Family History No Family History Records FoundNo Family History Records FoundNo Family History Records FoundNo Family History Records Found No data available for this section No Family History Records Found Advance Directives No Advanced Directives Records Found Advance Directive Response Recorded Date/ Time Advance Directives No February 10:23am Hospital Course Note MR#: [id number] [facility] Pt. Name: Everton Decker Admitted: 10/13/2018 Discharged: 10/15/2018 Date of : 1955 Physician: Dat Cochran MD DISCHARGE SUMMARY PRIMARY CARE PHYSICIAN: Cesilia Donohue M.D. PRINCIPAL DIAGNOSIS: Paroxysmal atrial fibrillation. SECONDARY DIAGNOSES: 1. Coronary artery disease, status post cardiac cath showing nonobstructive disease. 2. Paroxysmal atrial ltqlccfslgca-SONJG1-FDNr of 0, now requiring long-term anticoagulation. 3. Qgc-PI-myfkvkvhj myocardial infarction-type 2. 4. Nephrolithiasis. PROCEDURES THIS ADMISSION: Transthoracic echocardiogram, stress test, cardiac cath. CONSULTATIONS THIS ADMISSION: Cardiology. HOSPITAL COURSE: The patient is a 62-year-old male with past medical history as listed above, who was transferred to our hospital from [facility] for treatment of atrial fibrillation with RVR and NSTEMI. He reports that he was working on his yard prior to presentation and started to have some chest (more content not included)... Reason for Referral Reason EVALUATE AND TREAT Diagnosis 1 Spondylolisthesis, l umbar region (M43.16) Referral Organization [facility] u[facility]gery Referring Provider First Name Maribel Referring Provider Last Name Ryanne Referring Provider Specialty Nurse Pract itioner Referred Organization [facility] Referred Provider Steffany Jacobs Referred Address [address], [place],[address] Referred Provider Specialty Pain Medicin e Referral [...] section and content) DATE CREATED AUTHOR 11/26/2018 [facility] DATE CREATED AUTHOR AUTHOR'S ORGANIZ ATION 07/29/2022 [facility] DATE CREATED AUTHOR AUTHOR'S ORGANIZ ATION 06/25/2023 [facility] DATE CREATED AUTHOR AUTHOR'S ORGANIZ ATION 09/22/2023 [facility] DATE CREATED AUTHOR AUTHOR'S ORGANIZ ATION 12/07/2023 [facility] REASON FOR VISIT (unrecogniz ed section and content) referred by Dr. Donohue Spinal S tenosis, Lumbar6 month Follow up Care Teams (unrecognized [...] BE BASED ON THE PRIMARY CLINICAL RECORDS. [employer] provides no warranty or guarantee of the accuracy or completeness of information in this document.
== END 2024-04-10 11:01 | disposition home or self-care (01) ==
PROVIDERS: PCP Family Medicine; Visit Provider Family Medicine
DX: M25.511 Pain in right shoulder (principal)
CPT/HCPCS: 73030

== ENCOUNTER 2024-06-29 09:16 | Outpatient (OUT) | payer MEDICARE, SELFPAY ==
--- NOTE | 2024-06-29 10:06 | XR_ITS ---
The [place] [id number] Patient Name: EVERTON DECKER MRN: [id number] date: 1955 Sex: M Assigned Patient Location: [facility] Current Patient Location: [facility] Accession/Order Number: [id number] Exam Date: 06/29/2024 12:10 Report Date: 06/29/2024 12:16 At the request of: KACI GONSALEZ APRN Procedure: XR lumbar spine 6V w bending LUMBAR SPINE WITH FLEXION AND EXTENSION VIEWS - 6 views: CLINICAL HISTORY: Chronic low back pain radiating down the left leg COMPARISON: 02/02/2022 AP, lateral (neutral, flexion and extension) and both oblique views were obtained. There is slight levoscoliotic curvature. The bony structures are osteopenic. There is no acute compression fracture. There is continued anterolisthesis of L4 on L5 of approximately 6 mm. There is also slight retrolisthesis of L5 on S1. Alignment does not change significantly with flexion or extension. Disc space narrowing is present at L4-5. Mild endplate spurring is visualized. There is lower lumbar facet hypertrophy. No pars defect is identified. The sacroiliac joints are maintained. There are no paraspinal soft tissue abnormalities. XR/XR lumbar spine 6V w bending IMPRESSION: SCOLIOSIS AND DEGENERATIVE CHANGES, DESCRIBED. Impression dictated by: Carol Moya M.D.06/29/2024 12:16 PM Dictation Location: [place] [address] Electronically authenticated by: [id number] Y Date: 06/29/2024 12:16
== END 2024-06-29 09:17 | disposition home or self-care (01) ==
LOC: RAD 09:19
PROVIDERS: PCP Family Medicine
DX: M43.16 Spondylolisthesis, lumbar region (principal); M54.16 Radiculopathy, lumbar region; G89.29 Other chronic pain; M51.369 Other intervertebral disc degeneration, lumbar region without mention of lumbar back pain or lower extremity pain
CPT/HCPCS: 72114